=== PATIENT | male | born 1975 | race Caucasian/White ===

== ENCOUNTER 2016-02-09 14:52 | Inpatient (IN) | payer OTHER ==
[2016-02-09 16:39] VITALS: BMI 26.2
--- NOTE | 2016-02-09 17:04 | HP ---
COWS - Scale Resting Pulse: 1= [place] 81-100 Sweatin=Flushed/Facial Moisture Restless Observation: 3= Extraneous Movement Pupil Size: 2= Moderately Dilated Bone or Joint Aches: 2= Severe Diffuse Aches Runny Nose/ Eye Tearin= Runny Nose/Eyes GI Upset > 30mins: 3= Vomiting/Diarrhea Tremor Observation: 2= Slight Tremor Visible Yawning Observation: 2= >3x During Session Anxiety or Irritability: 2=Irritable/Anxious Goose Flesh Skin: 0=Smooth Skin COWS Score: 21 CIWA Score - CIWA Score Nausea/Vomitin Muscle Tremors: 3 Anxiety: 3 Agitation: 3 Paroxysmal Sweats: 2 Orientation: 0-Oriented Tacttile Disturbances: 2-Mild Itch/Numbness/Burn Auditory Disturbances: 2-Mild Harshness/Frighten Visual Disturbances: 2-Mild Sensitivity Headache: 2-Mild CIWA-Ar Total Score: 22 Admission ROS [facility] - HPI Chief Complaint: I NEED HELP TO STOP USING HEROIN,ALCOHOL,COCAINE,CANNABIS DEPENDENCE Allergies/Adverse Reactions: Allergies Allergy/AdvReac Type Severity Reaction Status Date / Time No Known Allergies Allergy Verified 10/09/15 14:51 History of Present Illness: THIS 40 MALE WITH HEROIN,COCAINE,CANNABIS ,ALCOHOL DEPENDENCE,WITHDRAWAL SYMPTOM ,LAST DETOX 6TO 12/26/15 [facility] SYNCOPE ALCOHOL RELATED NICOTINE DEPENDENCE DEPRESSION,INSOMNIA LONGEST PERIOD OF SOBRIETY Exam Limitations: No Limitations - Ebola screening Have you traveled outside of the country in the last 21 days: No (N) Have you had contact with anyone from an Ebola affected area: No Have you been sick,other than usual withdrawal symptoms: No Do you have a fever: No - Review of Systems Constitutional: Chills, Diaphoresis, Loss of Appetite, Malaise, Night Sweats, Changes in sleep, Weakness, Unintentional Wgt. Loss EENT: reports: Tearing, Nose Congestion Respiratory: reports: No Symptoms reported Cardiac: reports: Palpitations GI: reports: Diarrhea, Nausea, Vomiting, Abdominal cramping : reports: No Symptoms Reported Musculoskeletal: reports: Back Pain, Joint Pain, Muscle Pain, Joint Stiffness Neuro: reports: Headache, Tremors Endocrine: reports: No Symptoms Reported Hematology: reports: No Symptoms Reported Psychiatric: reports: Depressed (INSOMNIA) Patient History - Patient Medical History Hx Anemia: No Hx Asthma: Yes (albuterol inhaler) Hx Chronic Obstructive Pulmonary Disease (COPD): No Hx Cancer: No Hx Cardiac Disorders: No Hx Congestive Heart Failure: No Hx Hypertension: No Hx Hypercholesterolemia: No Hx Pacemaker: No HX Cerebrovascular Accident: No Hx Seizures: No Hx Dementia: No Hx Diabetes: No Hx Gastrointestinal Disorders: No Hx Liver Disease: No Hx Genitourinary Disorders: No Hx Sexually Transmitted Disorders: No Hx Renal Disease (ESRD): No Hx Thyroid Disease: No Hx Human Immunodeficiency Virus (HIV): No (negative last 10/23) Hx Hepatitis C: No (negative) Hx Depression: Yes (insomnia) Hx Suicide Attempt: No Hx Bipolar Disorder: No Hx Schizophrenia: No Other Medical History: NO SUICIDAL,NO HOMICIDAL - Patient Surgical History Past Surgical History: No Hx Neurologic Surgery: No Hx Cataract Extraction: No Hx Cardiac Surgery: No Hx Lung Surgery: No Hx Breast Surgery: No Hx Breast Biopsy: No Hx Abdominal Surgery: No Hx Appendectomy: No Hx Cholecystectomy: No Hx Genitourinary Surgery: No Hx Section: No Hx Orthopedic Surgery: No Anesthesia Reaction: No - PPD History Previous Implant?: Yes Date: 12/23/15 Results: 0 mm PPD to be Administered?: No - Smoking Cessation Smoking history: Current every day smoker Have you smoked in the past 12 months: Yes Aproximately how many cigarettes per day: 20 Hx Chewing Tobacco Use: No Initiated information on smoking cessation: Yes 'Breaking Loose' booklet given: 02/09/16 - Substance & Tx. History Substance Use Type: Alcohol, Cocaine, Heroin, Marijuana Hx Substance Use Treatment: Yes ([facility] 12/21/15 TO 12/26/15 [facility]) - Substances Abused Heroin Route: Injection Frequency: Daily Amount used: 20 BAGS Age of first use: 26 Date of Last Use: 02/08/16 Cocaine Route: Injection Frequency: Daily Amount used: 80$ Age of first use: 20 Date of Last Use: 02/08/16 Alcohol Route: Oral Frequency: Daily Amount used: 1PINT OF VODKA/6 PACKS OF 24 OZS OF BEER Age of first use: 16 Date of Last Use: 02/07/16 Marijuana/Hashish Route: Smoking Frequency: Daily Amount used: 50$ Age of first use: 16 Date of Last Use: 02/08/16 Family Disease History - Family Disease History Family Disease History: Diabetes: Grandparent, Father (alcohol,), [place]: Grandparent, Mother (of breast) Admission Physical Exam [facility] - Vital Signs Vital Signs: Vital Signs - 24 hr 02/09/16 16:29 Temperature 96.7 F L Pulse Rate 82 Respiratory 20 Rate Blood Pressure 136/82 - Physical General Appearance: Yes: Moderate Distress, Tremorous, Irritable, Sweating, Anxious HEENTM: Yes: Nasal Congestion Respiratory: Yes: Within Normal Limits Neck: Yes: Within Normal Limits Breast: Yes: Within Normal Limits Cardiology: Yes: Within Normal Limits, Regular Rhythm, Regular Rate, S1, S2 Abdominal: Yes: Normal Bowel Sounds, Non Tender, Flat, Soft, Organomegaly Genitourinary: Yes: Within Normal Limits Back: Yes: Normal Inspection, Muscle Spasm Musculoskeletal: Yes: Back pain, Joint Stiffness, Muscle Pain Extremities: Yes: Tremors Neurological: Yes: awning spreader II-XII NML intact, Fully Oriented, Alert, Motor Strength 5/5 Integumentary: Yes: Dry Lymphatic: Yes: Within Normal Limits - Diagnostic (1) Alcohol dependence with uncomplicated withdrawal Current Visit: No Status: Chronic (2) Asthma Current Visit: No Status: Chronic Qualifiers: Asthma severity: mild intermittent Asthma complication type: uncomplicated Qualified Code(s): J45.20 - Mild intermittent asthma, uncomplicated (3) Cannabis dependence Current Visit: No Status: Chronic (4) Cocaine dependence Current Visit: No Status: Chronic Qualifiers: Substance use status: with intoxication Complication of substance- induced condition: uncomplicated Qualified Code(s): F14.220 - Cocaine dependence with intoxication, uncomplicated (5) Depression Current Visit: No Status: Chronic (6) Insomnia Current Visit: No Status: Chronic Qualifiers: Insomnia type: primary Qualified Code(s): F51.01 - Primary insomnia (7) Nicotine dependence Current Visit: No Status: Chronic Qualifiers: Nicotine product type: cigarettes Substance use status: uncomplicated Qualified Code(s): F17.210 - Nicotine dependence, cigarettes, uncomplicated (8) Opioid dependence with withdrawal Current Visit: No Status: Chronic (9) Weight loss Current Visit: Yes Status: Acute (10) Syncope Current Visit: Yes Status: Acute Cleared for Admission [facility] - Detox or Rehab [facility] Level of Care: Medically Managed Detox Regimen/Protocol: Methadone/Valium S Breath Alcohol Content Breath Alcohol Content: 0 Urine Drug Screen - Results Drug Screen Negative: No Urine Drug Screen Results: THC-Marijuana, GEORGES-Cocaine, OPI-Opiates, BZO- Benzodiazepines
[2016-02-09] MEDS ORDERED: LOPERAMIDE HCL 2 MG CAPSULE PO PRN (17:20)
[2016-02-09] MEDS ORDERED: IBUPROFEN 400 MG TABLET (FP) PO PRN (17:20)
[2016-02-09] MEDS ORDERED: MAGNESIUM CITRATE 300 ML BOTTLE PO PRN (17:20)
[2016-02-09] MEDS ORDERED: MAG HYDROX/AL HYDROX/SIMETH 30 ML UNIT-DOSE CUP PO PRN (17:20)
[2016-02-09] MEDS ORDERED: MENTHOL/PHENOL 1 EACH UD MM PRN (17:20)
[2016-02-09] MEDS ORDERED: P-EPHED 60MG/TRIPROLIDI 2.5MG TABLET PO PRN (17:20)
[2016-02-09] MEDS ORDERED: ACETAMINOPHEN 325 MG TABLET (FP) PO PRN (17:20)
[2016-02-09] MEDS ORDERED: guaiFENesin/D-METHORPHAN HB 10 ML UNIT-DOSE CUPS PO PRN (17:20)
[2016-02-09] MEDS ORDERED: NICOTINE POLACRILEX 2 MG GUM BC PRN (17:20)
[2016-02-09] MEDS ORDERED: diphenhydrAMINE HCL 50 MG CAPSULE PO PRN (17:20)
[2016-02-09] MEDS ORDERED: MAGNESIUM HYDROX 2400MG/30ML ORAL SUSPENSION 30 ML CUP PO PRN (17:20)
[2016-02-09] MEDS ORDERED: ALBUTEROL SO4 6.7 GM HFA INHALER IH PRN (17:24)
[2016-02-09] MEDS ORDERED: diazePAM 5 MG TABLET PO ONE (17:30)
[2016-02-09] MEDS ORDERED: METHADONE HCL 10 MG TABLET (FOR DETOX USE ONLY) PO ONE ×2 (17:30→23:00)
[2016-02-09] MEDS: diazePAM 5 MG TABLET PO SCH (23:00)
[2016-02-09] MEDS: THIAMINE HCL 100 MG TABLET (FP) PO SCH (23:00)
[2016-02-10] MEDS: diazePAM 5 MG TABLET PO PRN ×2 (03:44→10:18)
[2016-02-10] MEDS: diazePAM 5 MG TABLET PO SCH ×3 (05:47→22:11)
[2016-02-10] MEDS ORDERED: METHADONE HCL 10 MG TABLET (FOR DETOX USE ONLY) PO SCH (10:00)
--- NOTE | 2016-02-10 10:10 | CONSULT ---
[facility] Psychiatric Consult - Data Date of interview: 02/10/16 Admission source: [facility] Identifying data: This is one of multiple admissions to [facility] for this 40 y/ o male seeking detox treatment on for alcohol,marijuana, cocaine and heroin dependence.Patient is single without children,homeless, unemployed and dependent on food stamps. Substance Abuse History: - Smoking Cessation. Smoking history: Current every day smoker. Have you smoked in the past 12 months: Yes. Aproximately how many cigarettes per day: 20. Hx Chewing Tobacco Use: No. Initiated information on smoking cessation: Yes. 'Breaking Loose' booklet given: 02/09/16. - Substance & Tx. History. Substance Use Type: Alcohol, Cocaine, Heroin, Marijuana. Hx Substance Use Treatment: Yes ([facility] 12/21/15 TO 12/26/15 [facility]). - Substances Abused. Heroin. Route: Injection. Frequency: Daily. Amount used: 20 BAGS. Age of first use: 26. Date of Last Use: 02/08/16. Cocaine. Route: Injection. Frequency: Daily. Amount used: 80$. Age of first use: 20. Date of Last Use: 02/08/16. Alcohol. Route: Oral. Frequency: Daily. Amount used: 1PINT OF VODKA/6 PACKS OF 24 OZS OF BEER. Age of first use: 16. Date of Last Use: 02/07/16. Marijuana/Hashish. Route: Smoking. Frequency: Daily. Amount used: 50$. Age of first use: 16. Date of Last Use: 02/08/16. Confirmed by patient. Medical History: Significant for bronchial asthma and migraine headaches. Psychiatric History: Patient denies. Physical/Sexual Abuse/Trauma History: No reported history of sexual abuse. Additional Comment: Urine Drug Screen Results: THC-Marijuana, GEORGES-Cocaine, OPI- Opiates, BZO-Benzodiazepines.Noted. Mental Status Exam - Mental Status Exam Alert and Oriented to: Time, Place, Person Cognitive Function: Good Patient Appearance: Well Groomed Mood: Anxious, Apprehensive, Hopeful Affect: Appropriate, Normal Range Patient Behavior: Fatigued, Appropriate, Cooperative Speech Pattern: Clear, Appropriate Voice Loudness: Normal Thought Process: Goal Oriented Thought Disorder: Not Present Hallucinations: Denies Suicidal Ideation: Denies Homicidal Ideation: Denies Insight/Judgement: Poor Sleep: Poorly, Difficulty falling asleep Appetite: Good Muscle strength/Tone: Normal Gait/Station: Normal Psychiatric Findings - Problem List ([place] 1, 2,3) (1) Alcohol dependence with uncomplicated withdrawal Current Visit: Yes Status: Acute (2) Cannabis dependence Current Visit: Yes Status: Chronic (3) Drug-induced mood disorder Current Visit: Yes Status: Acute (4) Cocaine dependence Current Visit: Yes Status: Acute Qualifiers: Substance use status: with intoxication Complication of substance- induced condition: uncomplicated Qualified Code(s): F14.220 - Cocaine dependence with intoxication, uncomplicated (5) Nicotine dependence Current Visit: Yes Status: Acute Qualifiers: Nicotine product type: cigarettes Substance use status: uncomplicated Qualified Code(s): F17.210 - Nicotine dependence, cigarettes, uncomplicated (6) Opioid dependence with withdrawal Current Visit: Yes Status: Acute (7) Asthma Current Visit: Yes Status: Chronic Qualifiers: Asthma severity: mild intermittent Asthma complication type: uncomplicated Qualified Code(s): J45.20 - Mild intermittent asthma, uncomplicated (8) Insomnia Current Visit: Yes Status: Chronic Qualifiers: Insomnia type: primary Qualified Code(s): F51.01 - Primary insomnia - Initial Treatment Plan Initial Treatment Plan: Psychoeducation.Detoxification.Zolpidem 10 mg po hs prn.Patient is made aware of the risk of parasomnias.He agrees with careplan.Observation.
[2016-02-10] MEDS: PRENATAL VITAMINS W/ FOLIC ACID TABLET (FP) PO SCH (10:15)
--- NOTE | 2016-02-10 10:37 | PN ---
[facility] CIWA - CIWA Score Nausea/Vomitin Muscle Tremors: 3 Anxiety: 3 Agitation: 3 Paroxysmal Sweats: 3 Orientation: 0-Oriented Tacttile Disturbances: 2-Mild Itch/Numbness/Burn Auditory Disturbances: 0-None Visual Disturbances: 0-None Headache: 0-None Present CIWA-Ar Total Score: 17 S COWS - Scale Resting Pulse: 0= [place] 80 or Below Sweatin=Flushed/Facial Moisture Restless Observation: 1= Difficult to Sit Still Pupil Size: 1= Pupils >than Normal Bone or Joint Aches: 2= Severe Diffuse Aches Runny Nose/ Eye Tearin= Nasal Congestion GI Upset > 30mins: 1= Stomach Cramp Tremor Observation of Outstretched Hands: 1= Tremor [place], Not Seen Yawning Observation: 0= None Anxiety or Irritability: 2=Irritable/Anxious Goose Flesh Skin: 0=Smooth Skin COWS Score: 11 [facility] Progress Note (SOAP) Subjective: INTERRUPTED SLEEP, SWEATS, NAUSEA, VOMITING , KNEES AND ELBOWS HURT Objective: 02/10/16 10:36 Vital Signs Temperature 97.2 F L 02/10/16 10:27 Pulse Rate 73 02/10/16 10:27 Respiratory Rate 18 02/10/16 10:27 Blood Pressure 120/71 02/10/16 10:27 O2 Sat by Pulse Oximetry (%) PENDING LABS PT AOX3 LYING IN BED Assessment: 02/10/16 10:36 WITHDRAWL SX;S Plan: CONT. DETOX INCREASE FLUIDS MOTRIN PRN FLEXERIL 10MG TID/PRN
[2016-02-10 11:03] LABS: MCH 30.9 pg (25.7-33.7); MCHC 32.9 g/dl (32.0-35.9); MEAN CELL VOLUME 93.9 fl (80-96); MEAN PLT VOLUME 8.3 fl (7.5-11.1); PLATELET COUNT 290 K/MM3 (134-434); RDW 14.1 % (11.9-15.9); WHITE BLOOD COUNT 8.8 K/mm3 (4.0-10.0)
[2016-02-10 11:32] LABS: ALBUMIN 3.4 g/dl (3.4-5.0); ALK PHOS 104 U/L (45-117); ANION GAP 2 (8-16); BILIRUBIN,TOTAL 0.5 mg/dL (0.2-1.0); CO2 31 mmol/L (21-32); CREATININE 0.9 mg/dL (0.7-1.3); GLUCOSE,RANDOM 77 mg/dL (74-106); SGOT/AST 101 U/L (15-37); SGPT/ALT 171 U/L (12-78); TOT PROT 7.1 g/dl (6.4-8.2)
[2016-02-10 11:44] LABS: HIV 1 & 2 AB NEGATIVE; HIV 1 AGp24 NEGATIVE
[2016-02-10 14:24] LABS: URINE APPEARANCE CLEAR; URINE BILIRUBIN NEGATIVE (NEGATIVE); URINE BLOOD NEGATIVE (NEGATIVE); URINE COLOR YELLOW; URINE GLUCOSE (UA) NEGATIVE (NEGATIVE); URINE KETONE NEGATIVE (NEGATIVE); URINE LEUK ESTERASE NEGATIVE (NEGATIVE); URINE NITRITE NEGATIVE (NEGATIVE); URINE PROTEIN NEGATIVE (NEGATIVE); URINE UROBILINOGEN NEGATIVE E.U./dl (0.2-1.0)
[2016-02-10] MEDS: THIAMINE HCL 100 MG TABLET (FP) PO SCH (22:11)
[2016-02-10] MEDS: ZOLPIDEM TARTRATE 10 MG TABLET (PARK CARE ONLY) PO PRN (22:11)
[2016-02-11] MEDS: diazePAM 5 MG TABLET PO PRN ×2 (02:30→20:32)
[2016-02-11] MEDS: diazePAM 5 MG TABLET PO SCH ×2 (10:27→22:25)
[2016-02-11] MEDS: PRENATAL VITAMINS W/ FOLIC ACID TABLET (FP) PO SCH (10:27)
[2016-02-11] MEDS: METHADONE HCL 5 MG TABLET (FOR DETOX USE ONLY) PO SCH (10:27)
[2016-02-11] MEDS: hydrOXYzine PAMOATE 50 MG CAPSULE (FP) PO PRN (10:27)
--- NOTE | 2016-02-11 10:39 | PN ---
[facility] CIWA - CIWA Score Nausea/Vomitin-No Nausea/No Vomiting Muscle Tremors: 4-Moderate,w/Arms Extend Anxiety: 4-Mod. Anxious/Guarded Agitation: 4-Moderately Restless Paroxysmal Sweats: 3 Orientation: 0-Oriented Tacttile Disturbances: 0-None Auditory Disturbances: 0-None Visual Disturbances: 0-None Headache: 0-None Present CIWA-Ar Total Score: 15 S COWS - Scale Resting Pulse: 0= [place] 80 or Below Sweatin=Flushed/Facial Moisture Restless Observation: 1= Difficult to Sit Still Pupil Size: 0= Normal to Room Light Bone or Joint Aches: 2= Severe Diffuse Aches Runny Nose/ Eye Tearin= Nasal Congestion GI Upset > 30mins: 0= None Tremor Observation of Outstretched Hands: 2= Slight Tremor Visible Yawning Observation: 0= None Anxiety or Irritability: 2=Irritable/Anxious Goose Flesh Skin: 0=Smooth Skin COWS Score: 10 S Progress Note (SOAP) Subjective: shakes sweats body aches irritable agitation interrupted sleep Objective: 02/11/16 10:38 Vital Signs Temperature 98.1 F 02/11/16 06:27 Pulse Rate 67 02/11/16 06:27 Respiratory Rate 16 02/11/16 06:27 Blood Pressure 123/85 02/11/16 06:27 O2 Sat by Pulse Oximetry (%) Laboratory Tests 02/10/16 02/10/16 02/10/16 06:30 06:30 06:30 WBC 8.8 D RBC 4.67 Hgb 14.4 D Hct 43.9 D MCV 93.9 MCHC 32.9 RDW 14.1 Plt Count 290 MPV 8.3 Sodium 142 Potassium 4.9 Chloride 109 H Carbon Dioxide 31 Anion Gap 2 L BUN 13 Creatinine 0.9 Creat Clearance w eGFR > 60 Random Glucose 77 Calcium 9.0 Total Bilirubin 0.5 AST 101 H D ALT 171 H D Alkaline Phosphatase 104 D Total Protein 7.1 Albumin 3.4 D Urine Color Urine Appearance Urine pH Ur Specific [place] Urine Protein Urine Glucose (UA) Urine Ketones Urine Blood Urine Nitrite Urine Bilirubin Urine Urobilinogen Ur Leukocyte Esterase RPR Titer Nonreactive HIV 1&2 Antibody Screen HIV P24 Antigen 02/10/16 02/10/16 06:30 09:30 WBC RBC Hgb Hct MCV MCHC RDW Plt Count MPV Sodium Potassium Chloride Carbon Dioxide Anion Gap BUN Creatinine Creat Clearance w eGFR Random Glucose Calcium Total Bilirubin AST ALT Alkaline Phosphatase Total Protein Albumin Urine Color Yellow Urine Appearance Clear Urine pH 5.0 D Ur Specific [place] 1.025 Urine Protein Negative Urine Glucose (UA) Negative Urine Ketones Negative Urine Blood Negative Urine Nitrite Negative Urine Bilirubin Negative Urine Urobilinogen Negative Ur Leukocyte Esterase Negative RPR Titer HIV 1&2 Antibody Screen Negative HIV P24 Antigen Negative elevated ast/alt; d/c tylenol awake/alert ambulating no acute distress Assessment: 02/11/16 10:39 withdrawal sx Plan: continue detox increase fluids flexiril prn motrin 800mg prn
[2016-02-11] MEDS: CYCLOBENZAPRINE HCL 10 MG TABLET (FP) PO PRN (11:10)
[2016-02-11] MEDS: IBUPROFEN 400 MG TABLET (FP) PO PRN (11:10)
[2016-02-11] MEDS: THIAMINE HCL 100 MG TABLET (FP) PO SCH (22:25)
[2016-02-11] MEDS: ZOLPIDEM TARTRATE 10 MG TABLET (PARK CARE ONLY) PO PRN (22:25)
[2016-02-12] MEDS: diazePAM 5 MG TABLET PO PRN ×3 (02:33→14:39)
[2016-02-12] MEDS: PRENATAL VITAMINS W/ FOLIC ACID TABLET (FP) PO SCH (10:12)
[2016-02-12] MEDS: IBUPROFEN 400 MG TABLET (FP) PO PRN (10:12)
[2016-02-12] MEDS: CYCLOBENZAPRINE HCL 10 MG TABLET (FP) PO PRN ×2 (10:12→22:15)
[2016-02-12] MEDS: diazePAM 5 MG TABLET PO SCH ×2 (10:13→22:15)
[2016-02-12] MEDS: METHADONE HCL 5 MG TABLET (FOR DETOX USE ONLY) PO SCH (10:13)
--- NOTE | 2016-02-12 10:58 | PN ---
[facility] Progress Note (SOAP) Subjective: interrupted sleep, sweats nausea, lbp, joint pains Objective: 02/12/16 10:57 Vital Signs Temperature 95.5 F L 02/12/16 09:56 Pulse Rate 89 02/12/16 09:56 Respiratory Rate 18 02/12/16 09:56 Blood Pressure 124/69 02/12/16 09:56 O2 Sat by Pulse Oximetry (%) Laboratory Tests 02/10/16 02/10/16 02/10/16 06:30 06:30 06:30 WBC 8.8 D RBC 4.67 Hgb 14.4 D Hct 43.9 D MCV 93.9 MCHC 32.9 RDW 14.1 Plt Count 290 MPV 8.3 Sodium 142 Potassium 4.9 Chloride 109 H Carbon Dioxide 31 Anion Gap 2 L BUN 13 Creatinine 0.9 Creat Clearance w eGFR > 60 Random Glucose 77 Calcium 9.0 Total Bilirubin 0.5 AST 101 H D ALT 171 H D Alkaline Phosphatase 104 D Total Protein 7.1 Albumin 3.4 D Urine Color Urine Appearance Urine pH Ur Specific [place] Urine Protein Urine Glucose (UA) Urine Ketones Urine Blood Urine Nitrite Urine Bilirubin Urine Urobilinogen Ur Leukocyte Esterase RPR Titer Nonreactive HIV 1&2 Antibody Screen HIV P24 Antigen 02/10/16 02/10/16 06:30 09:30 WBC RBC Hgb Hct MCV MCHC RDW Plt Count MPV Sodium Potassium Chloride Carbon Dioxide Anion Gap BUN Creatinine Creat Clearance w eGFR Random Glucose Calcium Total Bilirubin AST ALT Alkaline Phosphatase Total Protein Albumin Urine Color Yellow Urine Appearance Clear Urine pH 5.0 D Ur Specific [place] 1.025 Urine Protein Negative Urine Glucose (UA) Negative Urine Ketones Negative Urine Blood Negative Urine Nitrite Negative Urine Bilirubin Negative Urine Urobilinogen Negative Ur Leukocyte Esterase Negative RPR Titer HIV 1&2 Antibody Screen Negative HIV P24 Antigen Negative pt aox3 in nad lying in bed Assessment: 02/12/16 10:57 withdrawl sx's Plan: cont. detox increase fluids analgesic balm bid
[2016-02-12] MEDS: THIAMINE HCL 100 MG TABLET (FP) PO SCH (22:15)
[2016-02-12] MEDS: ZOLPIDEM TARTRATE 10 MG TABLET (PARK CARE ONLY) PO PRN (22:16)
[2016-02-12] MEDS: METHYL SALICYLATE/MENTHOL OINT 30 GM TUBE TP SCH (22:17)
[2016-02-13] MEDS ORDERED: METHADONE HCL 10 MG TABLET (FOR DETOX USE ONLY) PO SCH (10:00)
[2016-02-13] MEDS ORDERED: diazePAM 5 MG TABLET PO SCH (10:00)
[2016-02-13] MEDS: IBUPROFEN 400 MG TABLET (FP) PO PRN (10:17)
[2016-02-13] MEDS: PRENATAL VITAMINS W/ FOLIC ACID TABLET (FP) PO SCH (10:17)
[2016-02-13] MEDS: hydrOXYzine PAMOATE 50 MG CAPSULE (FP) PO PRN ×2 (10:18→14:11)
[2016-02-13] MEDS: CYCLOBENZAPRINE HCL 10 MG TABLET (FP) PO PRN ×2 (10:18→22:14)
[2016-02-13] MEDS: METHYL SALICYLATE/MENTHOL OINT 30 GM TUBE TP SCH ×2 (10:18→22:13)
--- NOTE | 2016-02-13 10:45 | PN ---
[facility] Progress Note (SOAP) Subjective: sweats Objective: 02/13/16 10:40 Vital Signs Temperature 97.9 F 02/13/16 10:04 Pulse Rate 88 02/13/16 10:04 Respiratory Rate 18 02/13/16 10:04 Blood Pressure 106/70 02/13/16 10:04 O2 Sat by Pulse Oximetry (%) awake/alert ambulating no acute distress Assessment: 02/13/16 10:41 withdrawal sx Plan: continue detox increase fluids d/c in am
[2016-02-13] MEDS: THIAMINE HCL 100 MG TABLET (FP) PO SCH (22:13)
[2016-02-14] MEDS ORDERED: METHADONE HCL 5 MG TABLET (FOR DETOX USE ONLY) PO SCH (06:00)
--- NOTE | 2016-02-14 07:45 | PN ---
S Progress Note (SOAP) Subjective: ALERT,NO COMPLAINT Objective: 02/14/16 07:44 Vital Signs Temperature 97.2 F L 02/14/16 06:42 Pulse Rate 64 02/14/16 06:42 Respiratory Rate 16 02/14/16 06:42 Blood Pressure 100/63 02/14/16 06:42 O2 Sat by Pulse Oximetry (%) Assessment: 02/14/16 07:44 DETOX COMPLETED,NO WITHDRAWAL SYMPTOM Plan: DISCHARGE TODAY,FOLLOW UP WITH AFTER CARE PROGRAM ARRANGEMENT
--- NOTE | 2016-02-14 07:49 | DS ---
[facility] Detox Discharge Summary Admission Date: 02/09/16 Discharge Date: 02/14/16 - History Present History: Alcohol Dependence, Cannabis Dependence, Opioid Dependence, Sedative Dependence Additional Comments: FOLLOW UP WITH AFTER CARE PROGRAM ARRANGEMENT Pertinent Past History: ASTHMA - Physical Exam Results Vital Signs: Vital Signs Temperature 97.2 F L 02/14/16 06:42 Pulse Rate 64 02/14/16 06:42 Respiratory Rate 16 02/14/16 06:42 Blood Pressure 100/63 02/14/16 06:42 O2 Sat by Pulse Oximetry (%) Pertinent Admission Physical Exam Findings: WITHDRAWAL SYMPTOM - Treatment Hospital Course: Detox Protocol Followed, Detoxed Safely, Responded well, Discharged Condition Good Patient has Accepted a Rehab Referral to: [facility] - Medication Discharge Medications: Ambulatory Orders Albuterol Sulfate Inhaler - [Ventolin HFA Inhaler -] 2 inh IH Q4H PRN 12/16/14 Zolpidem Tartrate [Ambien] 10 mg PO HS #14 tablet 03/13/15 - Diagnosis (1) Alcohol dependence with uncomplicated withdrawal Current Visit: Yes Status: Acute (2) Asthma Current Visit: Yes Status: Chronic Qualifiers: Asthma severity: mild intermittent Asthma complication type: uncomplicated Qualified Code(s): J45.20 - Mild intermittent asthma, uncomplicated (3) Cannabis dependence Current Visit: Yes Status: Chronic (4) Cocaine dependence Current Visit: Yes Status: Acute Qualifiers: Substance use status: with intoxication Complication of substance- induced condition: uncomplicated Qualified Code(s): F14.220 - Cocaine dependence with intoxication, uncomplicated (5) Depression Current Visit: No Status: Chronic (6) Insomnia Current Visit: Yes Status: Chronic Qualifiers: Insomnia type: primary Qualified Code(s): F51.01 - Primary insomnia (7) Nicotine dependence Current Visit: Yes Status: Acute Qualifiers: Nicotine product type: cigarettes Substance use status: uncomplicated Qualified Code(s): F17.210 - Nicotine dependence, cigarettes, uncomplicated (8) Opioid dependence with withdrawal Current Visit: Yes Status: Acute (9) Weight loss Current Visit: Yes Status: Acute (10) Syncope Current Visit: Yes Status: Acute - AMA Did Patient Leave Against Medical Advice: No
[2016-02-14 09:29] VITALS: BP 122/70; PULSE 80; TEMP 95.6
== END 2016-02-14 09:52 | disposition home or self-care (01) | DRG 773 ==
LOC: YASAS 14:52 → Y6N 17:18
PROVIDERS: ADMIT Internal Medicine; ATTEND Internal Medicine
PROC: HZ2ZZZZ Detoxification Services for Substance Abuse Treatment (ICD-10-PCS; principal; 2016-02-09)
DX: F11.23 Opioid dependence with withdrawal (principal); F10.230 Alcohol dependence with withdrawal, uncomplicated; F14.20 Cocaine dependence, uncomplicated; F12.20 Cannabis dependence, uncomplicated; F17.210 Nicotine dependence, cigarettes, uncomplicated; F19.24 Other psychoactive substance dependence with psychoactive substance-induced mood disorder; F32.9 Major depressive disorder, single episode, unspecified; F51.01 Primary insomnia; J45.20 Mild intermittent asthma, uncomplicated; R74.0 Nonspecific elevation of levels of transaminase and lactic acid dehydrogenase [LDH]; Z87.898 Personal history of other specified conditions; Z86.79 Personal history of other diseases of the circulatory system
CPT/HCPCS: 36415; 80053; 81003; 85027; 86593; 87389; 93005; 93010

== ENCOUNTER 2017-06-16 12:13 | Inpatient (IN) | payer OTHER ==
[2017-06-16 14:12] VITALS: BMI 23.8
--- NOTE | 2017-06-16 14:17 | HP ---
COWS - Scale Resting Pulse: 0= [place] 80 or Below Sweatin= Chills/Flushing Restless Observation: 1= Difficult to Sit Still Pupil Size: 0= Normal to Room Light Bone or Joint Aches: 2= Severe Diffuse Aches Runny Nose/ Eye Tearin= Runny Nose/Eyes GI Upset > 30mins: 1= Stomach Cramp Tremor Observation: 2= Slight Tremor Visible Yawning Observation: 1= 1-2x During Session Anxiety or Irritability: 2=Irritable/Anxious Goose Flesh Skin: 3=Piloerection COWS Score: 15 CIWA Score - CIWA Score Nausea/Vomitin Muscle Tremors: 3 Anxiety: 4-Mod. Anxious/Guarded Agitation: 2 Paroxysmal Sweats: 3 Orientation: 0-Oriented Tacttile Disturbances: 3-Moderate Itch/Numb/Burn Auditory Disturbances: 0-None Visual Disturbances: 2-Mild Sensitivity Headache: 0-None Present CIWA-Ar Total Score: 20 Admission ROS BHS - HPI Chief Complaint: "I came here because I want to get help and because I want to get my life back in order." Patient is here to Detox from Alcohol and Heroin. Allergies/Adverse Reactions: Allergies Allergy/AdvReac Type Severity Reaction Status Date / Time No Known Allergies Allergy Verified 06/16/17 13:52 History of Present Illness: Patient is a 42 YO male here to Detox from Alcohol and Heroin. Patient has had several previous Detox admissions at [facility] (Last: 02/2016). Longest period of sobriety / non-drug use in recent years: aprox. 5 years 1991 - 1996. Exam Limitations: No Limitations - Ebola screening Have you traveled outside of the country in the last 21 days: No Have you had contact with anyone from an Ebola affected area: No Have you been sick,other than usual withdrawal symptoms: No Do you have a fever: No - Review of Systems Constitutional: Diaphoresis, Fever, Loss of Appetite, Malaise, Night Sweats, Changes in sleep, Unintentional Wgt. Loss (Lost approx. 100 lbs. over last 3 months.) EENT: reports: Nose Congestion Respiratory: reports: Productive cough Cardiac: reports: No Symptoms Reported GI: reports: Constipated, Nausea, Poor Appetite, Vomiting, Indigestion, Abdominal cramping : reports: No Symptoms Reported Musculoskeletal: reports: Joint Pain Integumentary: reports: No Symptoms Reported Neuro: reports: Headache Endocrine: reports: No Symptoms Reported Hematology: reports: No Symptoms Reported Psychiatric: reports: Judgement Intact, Mood/Affect Appropiate, Orientated x3, Anxious, Depressed Patient History - Patient Medical History Hx Anemia: No Hx Asthma: Yes (Uses MDI PRN.) Hx Chronic Obstructive Pulmonary Disease (COPD): No Hx Cancer: No Hx Cardiac Disorders: No Hx Congestive Heart Failure: No Hx Hypertension: No Hx Hypercholesterolemia: No Hx Pacemaker: No HX Cerebrovascular Accident: No Hx Seizures: No Hx Dementia: No Hx Diabetes: No Hx Gastrointestinal Disorders: No Hx Liver Disease: No Hx Genitourinary Disorders: No Hx Sexually Transmitted Disorders: No Hx Renal Disease (ESRD): No Hx Thyroid Disease: No (Last Tested: 2016: NEGATIVE.) Hx Human Immunodeficiency Virus (HIV): No Hx Hepatitis C: No (Last Tested: 2016: NEGATIVE.) Hx Depression: Yes (Meds. in past, None currently.) Hx Suicide Attempt: No (PATIENT DENIES CURRENT SI / HI.) Hx Bipolar Disorder: No Hx Schizophrenia: No Other Medical History: DENIES. - Patient Surgical History Past Surgical History: No Hx Neurologic Surgery: No Hx Cataract Extraction: No Hx Cardiac Surgery: No Hx Lung Surgery: No Hx Breast Surgery: No Hx Breast Biopsy: No Hx Abdominal Surgery: No Hx Appendectomy: No Hx Cholecystectomy: No Hx Genitourinary Surgery: No Hx Section: No Hx Orthopedic Surgery: No Other Surgical History: DENIES. Anesthesia Reaction: No - PPD History Previous Implant?: Yes Documented Results: Negative w/proof Implanted On Prior [facility] Admission?: Yes Date: 12/23/15 Results: 0 mm PPD to be Administered?: Yes - Reproductive History Patient is a Female of Child Bearing Age (11 -55 yrs old): No (PATIENT IS MALE.) - Smoking Cessation Smoking history: Current every day smoker Have you smoked in the past 12 months: Yes Aproximately how many cigarettes per day: 20 Cigars Per Day: 0 Hx Chewing Tobacco Use: No Initiated information on smoking cessation: Yes 'Breaking Loose' booklet given: 06/16/17 (GIVEN TO PATIENT.) - Substance & Tx. History Hx Substance Use: Yes Substance Use Type: Alcohol, Cocaine, Marijuana, Opiates Hx Substance Use Treatment: Yes (Previous Detox admissions at [facility], also at [facility] ([place], [place] 2017.) - Substances Abused Heroin Route: Injection Frequency: Daily Amount used: 20 bags Age of first use: 26 Date of Last Use: 06/15/17 Cocaine Route: Injection Frequency: Daily Amount used: $100 Age of first use: 17 Date of Last Use: 06/15/17 Alcohol-vodka/rum/beer Route: Oral Frequency: Daily Amount used: 2-3 pts./2-3 6 pts. Age of first use: 14 Date of Last Use: 06/15/17 Marijuana Route: Smoking Frequency: Daily Amount used: $50 Age of first use: 14 Date of Last Use: 06/15/17 Family Disease History - Family Disease History Family Disease History: Diabetes: Grandparent (Migraines.), Father (alcohol, ; Liver Cirrhosis.), [place]: Grandparent, Mother (of breast), Other: Grandparent, Father Admission Physical Exam S - Vital Signs Vital Signs: Vital Signs - 24 hr 06/16/17 13:54 Temperature 97 F L Pulse Rate 59 L - Physical General Appearance: Yes: No Apparent Distress, Nourished, Appropriately Dressed , Anxious HEENTM: Yes: Hearing grossly Normal, Normocephalic, Normal Voice, PRETTY, Pharynx Normal Respiratory: Yes: Chest Non-Tender, Lungs Clear, No Respiratory Distress, No Accessory Muscle Use Neck: Yes: No masses,lesions,Nodules, Supple, Trachea in good position Breast: Yes: Breast Exam Deferred Cardiology: Yes: Regular Rhythm, Regular Rate, S1, S2 Abdominal: Yes: Normal Bowel Sounds, Non Tender, Flat, Soft Genitourinary: Yes: Within Normal Limits Back: Yes: Normal Inspection Musculoskeletal: Yes: full range of Motion, Gait Steady Extremities: Yes: Normal Capillary Refill, Normal Range of Motion, Non-Tender Neurological: Yes: Fully Oriented, Alert, Normal Mood/Affect, Normal Response Integumentary: Yes: Normal Color, Dry, Warm, Track Stout (Noted on bilateral forearms. No signs of infection noted at affected sites.) Lymphatic: Yes: Within Normal Limits - Diagnostic (1) Alcohol dependence with uncomplicated withdrawal Current Visit: Yes Status: Acute (2) Cocaine dependence, uncomplicated Current Visit: Yes Status: Acute (3) Cannabis dependence, uncomplicated Current Visit: Yes Status: Acute (4) Nicotine dependence Current Visit: Yes Status: Chronic Qualifiers: Nicotine product type: cigarettes Substance use status: uncomplicated Qualified Code(s): F17.210 - Nicotine dependence, cigarettes, uncomplicated (5) Opioid dependence with withdrawal Current Visit: Yes Status: Acute (6) Asthma Current Visit: Yes Status: Chronic Qualifiers: Asthma severity: mild Asthma persistence: intermittent Asthma complication type: uncomplicated Qualified Code(s): J45.20 - Mild intermittent asthma, uncomplicated Cleared for Admission [facility] - Detox or Rehab [facility] Level of Care: Medically Managed Detox Regimen/Protocol: Methadone/Valium (Patient Requests.) [facility] Breath Alcohol Content Breath Alcohol Content: 0 Urine Drug Screen - Results Drug Screen Negative: No Urine Drug Screen Results: THC-Marijuana, [place]ES-Cocaine, OPI-Opiates
[2017-06-16] MEDS ORDERED: guaiFENesin/D-METHORPHAN HB 10 ML UNIT-DOSE CUPS PO PRN (14:35)
[2017-06-16] MEDS ORDERED: LOPERAMIDE HCL 2 MG CAPSULE PO PRN (14:35)
[2017-06-16] MEDS ORDERED: P-EPHED 60MG/TRIPROLIDI 2.5MG TABLET PO PRN (14:35)
[2017-06-16] MEDS ORDERED: MAGNESIUM CITRATE 300 ML BOTTLE PO PRN (14:35)
[2017-06-16] MEDS ORDERED: chlordiazePOXIDE HCL 25 MG CAPSULE PO PRN (14:35)
[2017-06-16] MEDS ORDERED: MENTHOL/PHENOL 1 EACH UD MM PRN (14:35)
[2017-06-16] MEDS ORDERED: IBUPROFEN 400 MG TABLET (FP) PO PRN (14:35)
[2017-06-16] MEDS ORDERED: chlordiazePOXIDE HCL 25 MG CAPSULE PO ONE (14:35)
[2017-06-16] MEDS ORDERED: MAGNESIUM HYDROX 2400MG/30ML ORAL SUSPENSION 30 ML CUP PO PRN (14:35)
[2017-06-16] MEDS ORDERED: MAG HYDROX/AL HYDROX/SIMETH 30 ML UNIT-DOSE CUP PO PRN (14:35)
[2017-06-16] MEDS ORDERED: NICOTINE POLACRILEX 2 MG GUM BUC PRN (14:35)
[2017-06-16] MEDS ORDERED: ACETAMINOPHEN 325 MG TABLET (FP) PO PRN (15:28)
[2017-06-16] MEDS ORDERED: METHADONE HCL 10 MG TABLET (FOR DETOX USE ONLY) PO ONE ×3 (15:30→23:00)
[2017-06-16] MEDS ORDERED: diazePAM 5 MG TABLET PO ONE ×2 (15:45→18:30)
[2017-06-16] MEDS ORDERED: chlordiazePOXIDE HCL 25 MG CAPSULE PO SCH (17:00)
[2017-06-16 17:12] LABS: ALBUMIN 3.7 g/dl (3.4-5.0); ANION GAP 10 (8-16); BLOOD UREA NITROGEN 11 mg/dL (7-18); CALCIUM 8.9 mg/dL (8.5-10.1); CHLORIDE 105 mmol/L (98-107); CO2 29 mmol/L (21-32); GLUCOSE,RANDOM 81 mg/dL (74-106); POTASSIUM 4.3 mmol/L (3.5-5.1); SODIUM 144 mmol/L (136-145)
[2017-06-16 17:14] LABS: ALK PHOS 103 U/L (45-117); BILIRUBIN,TOTAL 0.4 mg/dL (0.2-1.0); CREATININE 0.9 mg/dL (0.7-1.3); SGOT/AST 40 U/L (15-37); SGPT/ALT 47 U/L (12-78); TOT PROT 7.3 g/dl (6.4-8.2)
[2017-06-16] MEDS: NICOTINE 21 MG/24 HOURS TOPICAL PATCH TD SCH (18:31)
[2017-06-16] MEDS: diazePAM 5 MG TABLET PO SCH (22:48)
[2017-06-16] MEDS: THIAMINE HCL 100 MG TABLET (FP) PO SCH (22:48)
[2017-06-16] MEDS: MELATONIN 5 MG TABLETS PO PRN (22:48)
[2017-06-16 23:15] LABS: URINE APPEARANCE TURBID; URINE BILIRUBIN NEGATIVE (<2.0 mg/dL); URINE COLOR YELLOW; URINE GLUCOSE (UA) NEGATIVE (NEGATIVE); URINE KETONE NEGATIVE (NEGATIVE); URINE LEUK ESTERASE NEGATIVE (NEGATIVE); URINE NITRITE NEGATIVE (NEGATIVE); URINE PROTEIN NEGATIVE (NEGATIVE); URINE UROBILINOGEN 4.0 E.U/dl mg/dL (0.2-1.0)
[2017-06-17] MEDS: diazePAM 5 MG TABLET PO SCH ×3 (05:35→22:18)
[2017-06-17 08:32] LABS: HEMATOCRIT 36.6 % (35.4-49); HEMOGLOBIN 12.5 GM/dL (11.7-16.9); MCH 31.3 pg (25.7-33.7); MCHC 34.1 g/dl (32.0-35.9); MEAN PLT VOLUME 8.8 fl (7.5-11.1); PLATELET COUNT 253 K/MM3 (134-434); RBC 3.98 M/mm3 (4.00-5.60); RDW 13.9 % (11.9-15.9); WHITE BLOOD COUNT 7.4 K/mm3 (4.0-10.0)
--- NOTE | 2017-06-17 09:49 | EKG ---
Test Reason : Blood Pressure : / mmHG Vent. Rate : 062 BPM Atrial Rate : 062 BPM P-R Int : 142 ms QRS Dur : 092 ms QT Int : 424 ms P-R-T Axes : 043 085 055 degrees QTc Int : 430 ms NORMAL SINUS RHYTHM NON-SPECIFIC INTRA-VENTRICULAR CONDUCTION DELAY NO PREVIOUS ECGS AVAILABLE Confirmed by RADHA PEREA MD ([id number]) on 06/17/2017 9:48:51 AM Referred By: Confirmed By:RADHA PEREA MD
--- NOTE | 2017-06-17 09:50 | CONSULT ---
[facility] Psychiatric Consult - Data Date of interview: 06/17/17 Admission source: [facility] Identifying data: Patient is a 42 year old single male, without kids, unemployed , homeless, and supported by public assistance. This is one of multiple admissions for patient. Pt. admitted to for alcohol, cocaine, and opiate dependence. Substance Abuse History: Following information confirmed with Mr. Diaz: Smoking Cessation. Smoking history: Current every day smoker. Have you smoked in the past 12 months: Yes. Aproximately how many cigarettes per day: 20. Cigars Per Day: 0. Hx Chewing Tobacco Use: No. Initiated information on smoking cessation: Yes. 'Breaking Loose' booklet given: 06/16/17 (GIVEN TO PATIENT.). - Substance & Tx. History. Hx Substance Use: Yes. Substance Use Type: Alcohol, Cocaine, Marijuana, Opiates. Hx Substance Use Treatment: Yes ( Previous Detox admissions at [facility], also at [facility] ([place], [place] 2017.). - Substances Abused. Heroin. Route: Injection. Frequency: Daily. Amount used: 20 bags. Age of first use: 26. Date of Last Use: 06/15/17. Cocaine. Route: Injection. Frequency: Daily. Amount used: $100. Age of first use: 17. Date of Last Use: 06/15/17. Alcohol-vodka/rum/beer. Route: Oral. Frequency: Daily. Amount used: 2-3 pts./2-3 6 pts. Age of first use: 14. Date of Last Use: 06/15/17. Marijuana. Route: Smoking. Frequency: Daily. Amount used: $50. Age of first use: 14. Date of Last Use: 06/15/17 Medical History: Asthma Psychiatric History: Patient denies h/o psychiatric hospitalization, outpatient care, and suicide attempt. Physical/Sexual Abuse/Trauma History: Denies. Mental Status Exam - Mental Status Exam Alert and Oriented to: Time, Place, Person Cognitive Function: Good Patient Appearance: Unkempt Mood: Withdrawn Affect: Mood Congruent Patient Behavior: Cooperative Speech Pattern: Appropriate Voice Loudness: Moderately Soft/Quiet Thought Process: Intact, Goal Oriented Thought Disorder: Not Present Hallucinations: Denies Suicidal Ideation: Denies Homicidal Ideation: Denies Insight/Judgement: Fair Sleep: Fair Appetite: Fair Muscle strength/Tone: Normal Gait/Station: Normal Psychiatric Findings - Problem List ([place] 1, 2,3) (1) Alcohol dependence with uncomplicated withdrawal Current Visit: Yes Status: Acute (2) Cannabis dependence, uncomplicated Current Visit: Yes Status: Acute (3) Cocaine dependence, uncomplicated Current Visit: Yes Status: Acute (4) Opioid dependence with withdrawal Current Visit: Yes Status: Acute (5) Drug-induced mood disorder Current Visit: Yes Status: Acute (6) Nicotine dependence Current Visit: Yes Status: Chronic Qualifiers: Nicotine product type: cigarettes Substance use status: uncomplicated Qualified Code(s): F17.210 - Nicotine dependence, cigarettes, uncomplicated - Initial Treatment Plan Initial Treatment Plan: Psychoeducation provided. Detoxification in progress. Observation.
[2017-06-17] MEDS ORDERED: METHADONE HCL 10 MG TABLET (FOR DETOX USE ONLY) PO SCH (10:00)
[2017-06-17] MEDS: PRENATAL VITAMINS W/ FOLIC ACID TABLET (FP) PO SCH (10:17)
[2017-06-17] MEDS: NICOTINE 21 MG/24 HOURS TOPICAL PATCH TD SCH (10:17)
--- NOTE | 2017-06-17 10:44 | PN ---
[facility] CIWA - CIWA Score Nausea/Vomitin-Mild Nausea/No Vomiting Muscle Tremors: 4-Moderate,w/Arms Extend Anxiety: 4-Mod. Anxious/Guarded Agitation: 4-Moderately Restless Paroxysmal Sweats: 1-Minimal Palms Moist Orientation: 0-Oriented Tacttile Disturbances: 1-Very Mild Itch/Numbness Auditory Disturbances: 0-None Visual Disturbances: 0-None Headache: 1-Very Mild CIWA-Ar Total Score: 16 BHS COWS - Scale Resting Pulse: 0= [place] 80 or Below Sweatin= Chills/Flushing Restless Observation: 1= Difficult to Sit Still Pupil Size: 0= Normal to Room Light Bone or Joint Aches: 2= Severe Diffuse Aches Runny Nose/ Eye Tearin= Runny Nose/Eyes GI Upset > 30mins: 2= Nausea/Diarrhea Tremor Observation of Outstretched Hands: 2= Slight Tremor Visible Yawning Observation: 2= >3x During Session Anxiety or Irritability: 2=Irritable/Anxious Goose Flesh Skin: 0=Smooth Skin COWS Score: 14 [facility] Progress Note (SOAP) Subjective: joint pain body ache sweat tremor trouble sleep at night anxiety restlessness Objective: 06/17/17 10:43 Vital Signs Temperature 98.6 F 06/17/17 09:15 Pulse Rate 100 H 06/17/17 09:15 Respiratory Rate 18 06/17/17 09:15 Blood Pressure 134/74 06/17/17 09:15 O2 Sat by Pulse Oximetry (%) Laboratory Last Values WBC 7.4 K/mm3 (4.0-10.0) 06/16/17 14:30 RBC 3.98 M/mm3 (4.00-5.60) L 06/16/17 14:30 Hgb 12.5 GM/dL (11.7-16.9) D 06/16/17 14:30 Hct 36.6 % (35.4-49) D 06/16/17 14:30 MCV 92.0 fl (80-96) 06/16/17 14:30 MCH 31.3 pg (25.7-33.7) 06/16/17 14:30 MCHC 34.1 g/dl (32.0-35.9) 06/16/17 14:30 RDW 13.9 % (11.9-15.9) 06/16/17 14:30 Plt Count 253 K/MM3 (134-434) 06/16/17 14:30 MPV 8.8 fl (7.5-11.1) 06/16/17 14:30 Sodium 144 mmol/L (136-145) 06/16/17 14:30 Potassium 4.3 mmol/L (3.5-5.1) 06/16/17 14:30 Chloride 105 mmol/L (98-107) 06/16/17 14:30 Carbon Dioxide 29 mmol/L (21-32) 06/16/17 14:30 Anion Gap 10 (8-16) 06/16/17 14:30 BUN 11 mg/dL (7-18) 06/16/17 14:30 Creatinine 0.9 mg/dL (0.7-1.3) 06/16/17 14:30 Creat Clearance w eGFR > 60 (>60) 06/16/17 14:30 Random Glucose 81 mg/dL (74-106) 06/16/17 14:30 Calcium 8.9 mg/dL (8.5-10.1) 06/16/17 14:30 Total Bilirubin 0.4 mg/dL (0.2-1.0) 06/16/17 14:30 AST 40 U/L (15-37) H D 06/16/17 14:30 ALT 47 U/L (12-78) D 06/16/17 14:30 Alkaline Phosphatase 103 U/L (45-117) 06/16/17 14:30 Total Protein 7.3 g/dl (6.4-8.2) 06/16/17 14:30 Albumin 3.7 g/dl (3.4-5.0) 06/16/17 14:30 Urine Color Yellow 06/16/17 23:00 Urine Appearance Turbid 06/16/17 23:00 Urine pH 5.0 (5.0-8.0) 06/16/17 23:00 Ur Specific [place] 1.027 (1.001-1.035) 06/16/17 23:00 Urine Protein Negative (NEGATIVE) 06/16/17 23:00 Urine Glucose (UA) Negative (NEGATIVE) 06/16/17 23:00 Urine Ketones Negative (NEGATIVE) 06/16/17 23:00 Urine Blood Negative (NEGATIVE) 06/16/17 23:00 Urine Nitrite Negative (NEGATIVE) 06/16/17 23:00 Urine Bilirubin Negative (<2.0 mg/dL) 06/16/17 23:00 Urine Urobilinogen 4.0 e.u/dl mg/dL (0.2-1.0) 06/16/17 23:00 Ur Leukocyte Esterase Negative (NEGATIVE) 06/16/17 23:00 RPR Titer Nonreactive (NONREACTIVE) 06/16/17 14:30 lab noted Assessment: 06/17/17 10:44 withdrawal sx Plan: continue detox
[2017-06-17] MEDS ORDERED: chlordiazePOXIDE HCL 25 MG CAPSULE PO SCH (17:00)
[2017-06-17] MEDS: diazePAM 5 MG TABLET PO PRN (19:44)
[2017-06-17] MEDS: MELATONIN 5 MG TABLETS PO PRN (22:18)
[2017-06-17] MEDS: THIAMINE HCL 100 MG TABLET (FP) PO SCH (22:18)
[2017-06-18] MEDS: diazePAM 5 MG TABLET PO SCH ×2 (10:46→22:29)
[2017-06-18] MEDS: PRENATAL VITAMINS W/ FOLIC ACID TABLET (FP) PO SCH (10:46)
[2017-06-18] MEDS: METHADONE HCL 5 MG TABLET (FOR DETOX USE ONLY) PO SCH (10:47)
[2017-06-18] MEDS: NICOTINE 21 MG/24 HOURS TOPICAL PATCH TD SCH (10:48)
[2017-06-18] MEDS: ALBUTEROL SO4 18 GM HFA INHALER IH PRN ×2 (10:49→22:31)
[2017-06-18] MEDS: diazePAM 5 MG TABLET PO PRN (14:09)
--- NOTE | 2017-06-18 14:50 | PN ---
S CIWA - CIWA Score Nausea/Vomitin Muscle Tremors: 3 Anxiety: 3 Agitation: 2 Paroxysmal Sweats: 1-Minimal Palms Moist Orientation: 0-Oriented Tacttile Disturbances: 1-Very Mild Itch/Numbness Auditory Disturbances: 1-Very Mild Visual Disturbances: 1-Very Mild Sensitivity Headache: 2-Mild CIWA-Ar Total Score: 17 BHS COWS - Scale Resting Pulse: 2= [place] 101-120 Sweatin= Chills/Flushing Restless Observation: 3= Extraneous Movement Pupil Size: 1= Pupils >than Normal Bone or Joint Aches: 2= Severe Diffuse Aches Runny Nose/ Eye Tearin= Runny Nose/Eyes GI Upset > 30mins: 2= Nausea/Diarrhea Tremor Observation of Outstretched Hands: 2= Slight Tremor Visible Yawning Observation: 1= 1-2x During Session Anxiety or Irritability: 2=Irritable/Anxious Goose Flesh Skin: 0=Smooth Skin COWS Score: 18 S Progress Note (SOAP) Subjective: ALERT,IRRITABLE,ANXIOUS,TREMOR,PAIN IN THE BODY,JOINT Objective: 06/18/17 14:49 Vital Signs Temperature 97.7 F 06/18/17 14:00 Pulse Rate 102 H 06/18/17 14:00 Respiratory Rate 20 06/18/17 14:00 Blood Pressure 125/80 06/18/17 14:00 O2 Sat by Pulse Oximetry (%) Laboratory Last Values WBC 7.4 K/mm3 (4.0-10.0) 06/16/17 14:30 RBC 3.98 M/mm3 (4.00-5.60) L 06/16/17 14:30 Hgb 12.5 GM/dL (11.7-16.9) D 06/16/17 14:30 Hct 36.6 % (35.4-49) D 06/16/17 14:30 MCV 92.0 fl (80-96) 06/16/17 14:30 MCH 31.3 pg (25.7-33.7) 06/16/17 14:30 MCHC 34.1 g/dl (32.0-35.9) 06/16/17 14:30 RDW 13.9 % (11.9-15.9) 06/16/17 14:30 Plt Count 253 K/MM3 (134-434) 06/16/17 14:30 MPV 8.8 fl (7.5-11.1) 06/16/17 14:30 Sodium 144 mmol/L (136-145) 06/16/17 14:30 Potassium 4.3 mmol/L (3.5-5.1) 06/16/17 14:30 Chloride 105 mmol/L (98-107) 06/16/17 14:30 Carbon Dioxide 29 mmol/L (21-32) 06/16/17 14:30 Anion Gap 10 (8-16) 06/16/17 14:30 BUN 11 mg/dL (7-18) 06/16/17 14:30 Creatinine 0.9 mg/dL (0.7-1.3) 06/16/17 14:30 Creat Clearance w eGFR > 60 (>60) 06/16/17 14:30 Random Glucose 81 mg/dL (74-106) 06/16/17 14:30 Calcium 8.9 mg/dL (8.5-10.1) 06/16/17 14:30 Total Bilirubin 0.4 mg/dL (0.2-1.0) 06/16/17 14:30 AST 40 U/L (15-37) H D 06/16/17 14:30 ALT 47 U/L (12-78) D 06/16/17 14:30 Alkaline Phosphatase 103 U/L (45-117) 06/16/17 14:30 Total Protein 7.3 g/dl (6.4-8.2) 06/16/17 14:30 Albumin 3.7 g/dl (3.4-5.0) 06/16/17 14:30 Urine Color Yellow 06/16/17 23:00 Urine Appearance Turbid 06/16/17 23:00 Urine pH 5.0 (5.0-8.0) 06/16/17 23:00 Ur Specific [place] 1.027 (1.001-1.035) 06/16/17 23:00 Urine Protein Negative (NEGATIVE) 06/16/17 23:00 Urine Glucose (UA) Negative (NEGATIVE) 06/16/17 23:00 Urine Ketones Negative (NEGATIVE) 06/16/17 23:00 Urine Blood Negative (NEGATIVE) 06/16/17 23:00 Urine Nitrite Negative (NEGATIVE) 06/16/17 23:00 Urine Bilirubin Negative (<2.0 mg/dL) 06/16/17 23:00 Urine Urobilinogen 4.0 e.u/dl mg/dL (0.2-1.0) 06/16/17 23:00 Ur Leukocyte Esterase Negative (NEGATIVE) 06/16/17 23:00 RPR Titer Nonreactive (NONREACTIVE) 06/16/17 14:30 HIV 1&2 Antibody Screen Negative 06/17/17 08:00 HIV P24 Antigen Negative 06/17/17 08:00 Assessment: 06/18/17 14:50 WITHDRAWAL SYMPTOM Plan: CONTINUE DETOX
[2017-06-18] MEDS ORDERED: chlordiazePOXIDE 5 MG CAPSULE PO SCH (17:00)
[2017-06-18] MEDS: THIAMINE HCL 100 MG TABLET (FP) PO SCH (22:29)
[2017-06-18] MEDS: MELATONIN 5 MG TABLETS PO PRN (22:30)
[2017-06-18] MEDS ORDERED: cloNIDine HCL 0.1 MG TABLET PO ONE (22:36)
--- NOTE | 2017-06-18 22:37 | PN ---
[facility] Progress Note (SOAP) Subjective: Nurse, Mr. Stevie Barton reports that patient's blood pressure is B/P 160/95 , HR 74. Patient is asymptomatic. Objective: 06/18/17 22:39 Vital Signs Temperature 97.5 F L 06/18/17 22:25 Pulse Rate 73 06/18/17 22:25 Respiratory Rate 22 06/18/17 22:25 Blood Pressure 160/95 06/18/17 22:25 O2 Sat by Pulse Oximetry (%) Laboratory Last Values WBC 7.4 K/mm3 (4.0-10.0) 06/16/17 14:30 RBC 3.98 M/mm3 (4.00-5.60) L 06/16/17 14:30 Hgb 12.5 GM/dL (11.7-16.9) D 06/16/17 14:30 Hct 36.6 % (35.4-49) D 06/16/17 14:30 MCV 92.0 fl (80-96) 06/16/17 14:30 MCH 31.3 pg (25.7-33.7) 06/16/17 14:30 MCHC 34.1 g/dl (32.0-35.9) 06/16/17 14:30 RDW 13.9 % (11.9-15.9) 06/16/17 14:30 Plt Count 253 K/MM3 (134-434) 06/16/17 14:30 MPV 8.8 fl (7.5-11.1) 06/16/17 14:30 Sodium 144 mmol/L (136-145) 06/16/17 14:30 Potassium 4.3 mmol/L (3.5-5.1) 06/16/17 14:30 Chloride 105 mmol/L (98-107) 06/16/17 14:30 Carbon Dioxide 29 mmol/L (21-32) 06/16/17 14:30 Anion Gap 10 (8-16) 06/16/17 14:30 BUN 11 mg/dL (7-18) 06/16/17 14:30 Creatinine 0.9 mg/dL (0.7-1.3) 06/16/17 14:30 Creat Clearance w eGFR > 60 (>60) 06/16/17 14:30 Random Glucose 81 mg/dL (74-106) 06/16/17 14:30 Calcium 8.9 mg/dL (8.5-10.1) 06/16/17 14:30 Total Bilirubin 0.4 mg/dL (0.2-1.0) 06/16/17 14:30 AST 40 U/L (15-37) H D 06/16/17 14:30 ALT 47 U/L (12-78) D 06/16/17 14:30 Alkaline Phosphatase 103 U/L (45-117) 06/16/17 14:30 Total Protein 7.3 g/dl (6.4-8.2) 06/16/17 14:30 Albumin 3.7 g/dl (3.4-5.0) 06/16/17 14:30 Urine Color Yellow 06/16/17 23:00 Urine Appearance Turbid 06/16/17 23:00 Urine pH 5.0 (5.0-8.0) 06/16/17 23:00 Ur Specific [place] 1.027 (1.001-1.035) 06/16/17 23:00 Urine Protein Negative (NEGATIVE) 06/16/17 23:00 Urine Glucose (UA) Negative (NEGATIVE) 06/16/17 23:00 Urine Ketones Negative (NEGATIVE) 06/16/17 23:00 Urine Blood Negative (NEGATIVE) 06/16/17 23:00 Urine Nitrite Negative (NEGATIVE) 06/16/17 23:00 Urine Bilirubin Negative (<2.0 mg/dL) 06/16/17 23:00 Urine Urobilinogen 4.0 e.u/dl mg/dL (0.2-1.0) 06/16/17 23:00 Ur Leukocyte Esterase Negative (NEGATIVE) 06/16/17 23:00 RPR Titer Nonreactive (NONREACTIVE) 06/16/17 14:30 HIV 1&2 Antibody Screen Negative 06/17/17 08:00 HIV P24 Antigen Negative 06/17/17 08:00 Assessment: 06/18/17 22:40 Withdrawal symptoms Plan: Clonidine 0.1mg tablet oral
[2017-06-19] MEDS: diazePAM 5 MG TABLET PO PRN (02:30)
[2017-06-19] MEDS: diazePAM 5 MG TABLET PO SCH ×2 (10:55→22:17)
[2017-06-19] MEDS: METHADONE HCL 5 MG TABLET (FOR DETOX USE ONLY) PO SCH (10:55)
[2017-06-19] MEDS: PRENATAL VITAMINS W/ FOLIC ACID TABLET (FP) PO SCH (10:56)
[2017-06-19] MEDS: NICOTINE 21 MG/24 HOURS TOPICAL PATCH TD SCH (10:59)
[2017-06-19] MEDS: DOCUSATE SODIUM 100 MG CAPSULE (FP) PO SCH ×2 (11:42→22:17)
--- NOTE | 2017-06-19 15:58 | PN ---
[facility] Progress Note (SOAP) Subjective: Headache, stomach ache, back pain, n/v/d (patient reported vomiting x 3 and diarrhea x 2 accompanied by hard stool and requesting stool softener) Objective: 06/19/17 15:57 Last Vital Signs Temp Pulse Resp BP Pulse Ox 97.9 F 86 20 109/64 06/19/17 14:00 06/19/17 14:00 06/19/17 14:00 06/19/17 14:00 Laboratory Tests 06/16/17 06/16/17 06/16/17 14:30 14:30 14:30 WBC 7.4 RBC 3.98 L Hgb 12.5 D Hct 36.6 D MCV 92.0 MCH 31.3 MCHC 34.1 RDW 13.9 Plt Count 253 MPV 8.8 Sodium 144 Potassium 4.3 Chloride 105 Carbon Dioxide 29 Anion Gap 10 BUN 11 Creatinine 0.9 Creat Clearance w eGFR > 60 Random Glucose 81 Calcium 8.9 Total Bilirubin 0.4 AST 40 H D ALT 47 D Alkaline Phosphatase 103 Total Protein 7.3 Albumin 3.7 Urine Color Urine Appearance Urine pH Ur Specific [place] Urine Protein Urine Glucose (UA) Urine Ketones Urine Blood Urine Nitrite Urine Bilirubin Urine Urobilinogen Ur Leukocyte Esterase RPR Titer Nonreactive HIV 1&2 Antibody Screen HIV P24 Antigen 06/16/17 06/17/17 23:00 08:00 WBC RBC Hgb Hct MCV MCH MCHC RDW Plt Count MPV Sodium Potassium Chloride Carbon Dioxide Anion Gap BUN Creatinine Creat Clearance w eGFR Random Glucose Calcium Total Bilirubin AST ALT Alkaline Phosphatase Total Protein Albumin Urine Color Yellow Urine Appearance Turbid Urine pH 5.0 Ur Specific [place] 1.027 Urine Protein Negative Urine Glucose (UA) Negative Urine Ketones Negative Urine Blood Negative Urine Nitrite Negative Urine Bilirubin Negative Urine Urobilinogen 4.0 e.u/dl Ur Leukocyte Esterase Negative RPR Titer HIV 1&2 Antibody Screen Negative HIV P24 Antigen Negative Labs noted Assessment: 06/19/17 15:57 Withdrawal symptoms Plan: Continue detox Encouraged PO hydration (water)
[2017-06-19] MEDS ORDERED: chlordiazePOXIDE HCL 10 MG CAPSULE PO SCH (17:00)
[2017-06-19] MEDS: THIAMINE HCL 100 MG TABLET (FP) PO SCH (22:17)
[2017-06-19] MEDS: MELATONIN 5 MG TABLETS PO PRN (22:18)
[2017-06-19] MEDS: ALBUTEROL SO4 18 GM HFA INHALER IH PRN (22:19)
[2017-06-20] MEDS ORDERED: METHADONE HCL 10 MG TABLET (FOR DETOX USE ONLY) PO SCH (10:00)
[2017-06-20] MEDS ORDERED: diazePAM 5 MG TABLET PO SCH (10:00)
[2017-06-20] MEDS: DOCUSATE SODIUM 100 MG CAPSULE (FP) PO SCH ×2 (10:16→22:04)
[2017-06-20] MEDS: PRENATAL VITAMINS W/ FOLIC ACID TABLET (FP) PO SCH (10:16)
[2017-06-20] MEDS: NICOTINE 21 MG/24 HOURS TOPICAL PATCH TD SCH (10:17)
--- NOTE | 2017-06-20 13:00 | PN ---
[facility] Progress Note (SOAP) Subjective: feeling better less sweat no tremor denies body ache tolerate food and fluid well Objective: 06/20/17 12:59 Vital Signs Temperature 97.9 F 06/20/17 10:16 Pulse Rate 84 06/20/17 10:16 Respiratory Rate 20 06/20/17 10:16 Blood Pressure 128/69 06/20/17 10:16 O2 Sat by Pulse Oximetry (%) Laboratory Last Values WBC 7.4 K/mm3 (4.0-10.0) 06/16/17 14:30 RBC 3.98 M/mm3 (4.00-5.60) L 06/16/17 14:30 Hgb 12.5 GM/dL (11.7-16.9) D 06/16/17 14:30 Hct 36.6 % (35.4-49) D 06/16/17 14:30 MCV 92.0 fl (80-96) 06/16/17 14:30 MCH 31.3 pg (25.7-33.7) 06/16/17 14:30 MCHC 34.1 g/dl (32.0-35.9) 06/16/17 14:30 RDW 13.9 % (11.9-15.9) 06/16/17 14:30 Plt Count 253 K/MM3 (134-434) 06/16/17 14:30 MPV 8.8 fl (7.5-11.1) 06/16/17 14:30 Sodium 144 mmol/L (136-145) 06/16/17 14:30 Potassium 4.3 mmol/L (3.5-5.1) 06/16/17 14:30 Chloride 105 mmol/L (98-107) 06/16/17 14:30 Carbon Dioxide 29 mmol/L (21-32) 06/16/17 14:30 Anion Gap 10 (8-16) 06/16/17 14:30 BUN 11 mg/dL (7-18) 06/16/17 14:30 Creatinine 0.9 mg/dL (0.7-1.3) 06/16/17 14:30 Creat Clearance w eGFR > 60 (>60) 06/16/17 14:30 Random Glucose 81 mg/dL (74-106) 06/16/17 14:30 Calcium 8.9 mg/dL (8.5-10.1) 06/16/17 14:30 Total Bilirubin 0.4 mg/dL (0.2-1.0) 06/16/17 14:30 AST 40 U/L (15-37) H D 06/16/17 14:30 ALT 47 U/L (12-78) D 06/16/17 14:30 Alkaline Phosphatase 103 U/L (45-117) 06/16/17 14:30 Total Protein 7.3 g/dl (6.4-8.2) 06/16/17 14:30 Albumin 3.7 g/dl (3.4-5.0) 06/16/17 14:30 Urine Color Yellow 06/16/17 23:00 Urine Appearance Turbid 06/16/17 23:00 Urine pH 5.0 (5.0-8.0) 06/16/17 23:00 Ur Specific [place] 1.027 (1.001-1.035) 06/16/17 23:00 Urine Protein Negative (NEGATIVE) 06/16/17 23:00 Urine Glucose (UA) Negative (NEGATIVE) 06/16/17 23:00 Urine Ketones Negative (NEGATIVE) 06/16/17 23:00 Urine Blood Negative (NEGATIVE) 06/16/17 23:00 Urine Nitrite Negative (NEGATIVE) 06/16/17 23:00 Urine Bilirubin Negative (<2.0 mg/dL) 06/16/17 23:00 Urine Urobilinogen 4.0 e.u/dl mg/dL (0.2-1.0) 06/16/17 23:00 Ur Leukocyte Esterase Negative (NEGATIVE) 06/16/17 23:00 RPR Titer Nonreactive (NONREACTIVE) 06/16/17 14:30 HIV 1&2 Antibody Screen Negative 06/17/17 08:00 HIV P24 Antigen Negative 06/17/17 08:00 lab noted Assessment: 06/20/17 13:00 mild withdrawal sx Plan: medically supervised detox
[2017-06-20] MEDS: THIAMINE HCL 100 MG TABLET (FP) PO SCH (22:03)
[2017-06-20] MEDS: MELATONIN 5 MG TABLETS PO PRN (22:04)
[2017-06-20] MEDS: ALBUTEROL SO4 18 GM HFA INHALER IH PRN (22:06)
[2017-06-21] MEDS: ALBUTEROL SO4 18 GM HFA INHALER IH PRN (05:44)
[2017-06-21] MEDS ORDERED: METHADONE HCL 5 MG TABLET (FOR DETOX USE ONLY) PO SCH (06:00)
[2017-06-21 06:15] VITALS: BP 133/71; PULSE 66; TEMP 97.9
--- NOTE | 2017-06-21 09:43 | DS ---
[facility] Detox Discharge Summary Admission Date: 06/16/17 Discharge Date: 06/21/17 - History Present History: Alcohol Dependence, Opioid Dependence Additional Comments: 42 years old male admitted on 06/16/17 for alcohol and opioid withdrawal sx completed detox regimen tolerated detox regimen well denies alcohol and opioid withdrawal sx alert oriented x 3 no acute distress wants to go to [facility] rehab program for recovery - Physical Exam Results Vital Signs: Vital Signs Temperature 97.9 F 06/21/17 06:00 Pulse Rate 66 06/21/17 06:00 Respiratory Rate 18 06/21/17 06:00 Blood Pressure 133/71 06/21/17 06:00 O2 Sat by Pulse Oximetry (%) Pertinent Admission Physical Exam Findings: withdrawal sx Vital Signs Temperature 97.9 F 06/21/17 06:00 Pulse Rate 66 06/21/17 06:00 Respiratory Rate 18 06/21/17 06:00 Blood Pressure 133/71 06/21/17 06:00 O2 Sat by Pulse Oximetry (%) Laboratory Last Values WBC 7.4 K/mm3 (4.0-10.0) 06/16/17 14:30 RBC 3.98 M/mm3 (4.00-5.60) L 06/16/17 14:30 Hgb 12.5 GM/dL (11.7-16.9) D 06/16/17 14:30 Hct 36.6 % (35.4-49) D 06/16/17 14:30 MCV 92.0 fl (80-96) 06/16/17 14:30 MCH 31.3 pg (25.7-33.7) 06/16/17 14:30 MCHC 34.1 g/dl (32.0-35.9) 06/16/17 14:30 RDW 13.9 % (11.9-15.9) 06/16/17 14:30 Plt Count 253 K/MM3 (134-434) 06/16/17 14:30 MPV 8.8 fl (7.5-11.1) 06/16/17 14:30 Sodium 144 mmol/L (136-145) 06/16/17 14:30 Potassium 4.3 mmol/L (3.5-5.1) 06/16/17 14:30 Chloride 105 mmol/L (98-107) 06/16/17 14:30 Carbon Dioxide 29 mmol/L (21-32) 06/16/17 14:30 Anion Gap 10 (8-16) 06/16/17 14:30 BUN 11 mg/dL (7-18) 06/16/17 14:30 Creatinine 0.9 mg/dL (0.7-1.3) 06/16/17 14:30 Creat Clearance w eGFR > 60 (>60) 06/16/17 14:30 Random Glucose 81 mg/dL (74-106) 06/16/17 14:30 Calcium 8.9 mg/dL (8.5-10.1) 06/16/17 14:30 Total Bilirubin 0.4 mg/dL (0.2-1.0) 06/16/17 14:30 AST 40 U/L (15-37) H D 06/16/17 14:30 ALT 47 U/L (12-78) D 06/16/17 14:30 Alkaline Phosphatase 103 U/L (45-117) 06/16/17 14:30 Total Protein 7.3 g/dl (6.4-8.2) 06/16/17 14:30 Albumin 3.7 g/dl (3.4-5.0) 06/16/17 14:30 Urine Color Yellow 06/16/17 23:00 Urine Appearance Turbid 06/16/17 23:00 Urine pH 5.0 (5.0-8.0) 06/16/17 23:00 Ur Specific [place] 1.027 (1.001-1.035) 06/16/17 23:00 Urine Protein Negative (NEGATIVE) 06/16/17 23:00 Urine Glucose (UA) Negative (NEGATIVE) 06/16/17 23:00 Urine Ketones Negative (NEGATIVE) 06/16/17 23:00 Urine Blood Negative (NEGATIVE) 06/16/17 23:00 Urine Nitrite Negative (NEGATIVE) 06/16/17 23:00 Urine Bilirubin Negative (<2.0 mg/dL) 06/16/17 23:00 Urine Urobilinogen 4.0 e.u/dl mg/dL (0.2-1.0) 06/16/17 23:00 Ur Leukocyte Esterase Negative (NEGATIVE) 06/16/17 23:00 RPR Titer Nonreactive (NONREACTIVE) 06/16/17 14:30 HIV 1&2 Antibody Screen Negative 06/17/17 08:00 HIV P24 Antigen Negative 06/17/17 08:00 lab noted - Treatment Hospital Course: Detox Protocol Followed, Detoxed Safely, Responded well, Discharged Condition Good, Rehab Referral Accepted Patient has Accepted a Rehab Referral to: [facility] - Medication Discharge Medications: Ambulatory Orders Zolpidem Tartrate [Ambien] 10 mg PO HS #14 tablet 03/13/15 Albuterol Sulfate Inhaler - [Ventolin HFA Inhaler -] 2 inh IH Q4H PRN #1 inhaler 06/21/17 - Diagnosis (1) Alcohol dependence with uncomplicated withdrawal Current Visit: Yes Status: Acute (2) Opioid dependence with withdrawal Current Visit: Yes Status: Acute (3) Asthma Current Visit: Yes Status: Chronic Qualifiers: Asthma severity: mild Asthma persistence: intermittent Asthma complication type: uncomplicated Qualified Code(s): J45.20 - Mild intermittent asthma, uncomplicated (4) Nicotine dependence Current Visit: Yes Status: Acute Qualifiers: Nicotine product type: cigarettes Substance use status: in withdrawal Qualified Code(s): F17.213 - Nicotine dependence, cigarettes, with withdrawal - AMA Did Patient Leave Against Medical Advice: No
== END 2017-06-21 09:20 | disposition home or self-care (01) | DRG 773 ==
LOC: YASAS 12:13 → Y6N 15:27
PROVIDERS: ADMIT Surgery; ATTEND Surgery
PROC: HZ2ZZZZ Detoxification Services for Substance Abuse Treatment (ICD-10-PCS; principal; 2017-06-16)
DX: F11.23 Opioid dependence with withdrawal (principal); F10.230 Alcohol dependence with withdrawal, uncomplicated; F14.20 Cocaine dependence, uncomplicated; F12.20 Cannabis dependence, uncomplicated; F17.213 Nicotine dependence, cigarettes, with withdrawal; F51.05 Insomnia due to other mental disorder; F19.24 Other psychoactive substance dependence with psychoactive substance-induced mood disorder; J45.20 Mild intermittent asthma, uncomplicated
CPT/HCPCS: 36415; 80053; 81003; 85027; 86593; 87389; 93005; 93010; J0735

== ENCOUNTER 2018-10-13 16:23 | Inpatient (IN) | payer OTHER ==
[2018-10-13 21:31] VITALS: BMI 23.1
--- NOTE | 2018-10-13 23:10 | HP ---
COWS - Scale Resting Pulse: 0= [place] 80 or Below Sweatin=Flushed/Facial Moisture Restless Observation: 0= Sits Still Pupil Size: 1= Pupils >than Normal Bone or Joint Aches: 4=Acute Joint/Muscle Pain Runny Nose/ Eye Tearin= Runny Nose/Eyes GI Upset > 30mins: 3= Vomiting/Diarrhea (vomiting x 3, diarrhea x 2) Tremor Observation: 4= Gross Tremor/Twitching Yawning Observation: 1= 1-2x During Session Anxiety or Irritability: 2=Irritable/Anxious Goose Flesh Skin: 0=Smooth Skin COWS Score: 19 CIWA Score - Admission Criteria OASAS Guidelines: Admission for Medically Managed Detox: Requires at least one of the followin. CIWA greater than 12 2. Seizures within the past 24 hours 3. Delirium tremens within the past 24 hours 4. Hallucinations within the past 24 hours 5. Acute intervention needed for co occurring medical disorder 6. Acute intervention needed for co occurring psychiatric disorder 7. Severe withdrawal that cannot be handled at a lower level of care (continued vomiting, continued diarrhea, abnormal vital signs) requiring intravenous medication and/or fluids 8. Admission ROS [facility] Chief Complaint: Heroin withdrawal symptoms Allergies/Adverse Reactions: Allergies Allergy/AdvReac Type Severity Reaction Status Date / Time No Known Allergies Allergy Verified 10/13/18 21:26 History of Present Illness: 43 years old male with a long history of heroin dependence (reports 15 years) is seeking admission to detox. Patient has been in previous multiple detox admissions, last at [facility]. He reports about a year of sobriety. He has history of asthma, migraine an depression. Denies suicide attempt and suicidal ideation at this time. Exam Limitations: No Limitations - Ebola screening Have you traveled outside of the country in the last 21 days: No (N) Have you had contact with anyone from an Ebola affected area: No Do you have a fever: No - Review of Systems Constitutional: Chills, Loss of Appetite, Malaise, Night Sweats, Changes in sleep, Weakness EENT: reports: Sinus Pressure Respiratory: reports: No Symptoms reported Cardiac: reports: No Symptoms Reported GI: reports: Diarrhea, Poor Appetite, Poor Fluid Intake, Vomiting, Abdominal cramping Musculoskeletal: reports: Back Pain, Joint Pain, Muscle Pain Integumentary: reports: Dryness, Flushing Neuro: reports: Headache, Tremors Endocrine: reports: No Symptoms Reported Hematology: reports: No Symptoms Reported Psychiatric: reports: Mood/Affect Appropiate, Depressed Other Systems: Reviewed and Negative Patient History - Patient Medical History Hx Anemia: No Hx Asthma: Yes (Uses MDI PRN.) Hx Chronic Obstructive Pulmonary Disease (COPD): No Hx Cancer: No Hx Cardiac Disorders: No Hx Congestive Heart Failure: No Hx Hypertension: No Hx Hypercholesterolemia: No Hx Pacemaker: No HX Cerebrovascular Accident: No Hx Seizures: No Hx Dementia: No Hx Diabetes: No Hx Gastrointestinal Disorders: No Hx Liver Disease: No Hx Genitourinary Disorders: No Hx Sexually Transmitted Disorders: No Hx Renal Disease (ESRD): No Hx Thyroid Disease: No Hx Human Immunodeficiency Virus (HIV): No ( Negative 2017) Hx Hepatitis C: No (Last Tested: 2017: NEGATIVE.) Hx Depression: Yes (Meds. in past, None currently.) Hx Suicide Attempt: No (PATIENT DENIES CURRENT SI / HI.) Hx Bipolar Disorder: No Hx Schizophrenia: No Other Medical History: Migraine - Not on medication - Patient Surgical History Past Surgical History: No Hx Neurologic Surgery: No Hx Cataract Extraction: No Hx Cardiac Surgery: No Hx Lung Surgery: No Hx Abdominal Surgery: No Hx Appendectomy: No Hx Cholecystectomy: No Hx Genitourinary Surgery: No Hx Orthopedic Surgery: No Other Surgical History: DENIES. Anesthesia Reaction: No - PPD History Previous Implant?: Yes Documented Results: Negative w/proof Implanted On Prior [facility] Admission?: Yes Date: 06/18/17 Results: 0 mm PPD to be Administered?: Yes - Reproductive History Patient is a Female of Child Bearing Age (11 -55 yrs old): No (male) - Smoking Cessation Smoking history: Current every day smoker Have you smoked in the past 12 months: Yes Aproximately how many cigarettes per day: 20 Cigars Per Day: 0 Hx Chewing Tobacco Use: No Initiated information on smoking cessation: Yes 'Breaking Loose' booklet given: 10/13/18 - Substance & Tx. History Hx Alcohol Use: No Hx Substance Use: Yes Substance Use Type: Cocaine, Heroin, Marijuana, Opiates Hx Substance Use Treatment: Yes ([facility]) - Substances abused Cocaine Substance route: Injection Frequency: Daily Amount used: $80 Age of first use: 26 Date of last use: 10/12/18 Heroin Substance route: Injection Frequency: Daily Amount used: 2 bundles Age of first use: 26 Date of last use: 10/12/18 Family Disease History - Family Disease History Family Disease History: Diabetes: Grandparent (Migraines.), Father (alcohol, ; Liver Cirrhosis.), [place]: Grandparent, Mother (of breast), Other: Grandparent, Father Admission Physical Exam [facility] - Vital Signs Vital Signs: Vital Signs - 24 hr 10/13/18 21:21 Temperature 98.5 F Pulse Rate 62 Respiratory 16 Rate Blood Pressure 145/85 - Physical General Appearance: Yes: Moderate Distress, Tremorous, Irritable, Anxious HEENTM: Yes: Within Normal Limits Respiratory: Yes: Lungs Clear, Normal Breath Sounds, No Respiratory Distress Neck: Yes: Supple Breast: Yes: Breast Exam Deferred Cardiology: Yes: Within Normal Limits Abdominal: Yes: Normal Bowel Sounds, Soft Genitourinary: Yes: Within Normal Limits Back: Yes: Normal Inspection Musculoskeletal: Yes: Back pain, Joint Stiffness, Muscle Pain Extremities: Yes: Tremors Neurological: Yes: Within Normal Limits, Alert Integumentary: Yes: Warm Lymphatic: Yes: Within Normal Limits - Diagnostic (1) Migraines Current Visit: Yes Status: Chronic Qualifiers: Migraine type: without aura (2) Alcohol dependence with uncomplicated withdrawal Current Visit: Yes Status: Acute (3) Cocaine dependence Current Visit: Yes Status: Chronic Qualifiers: Substance use status: with intoxication Complication of substance-induced condition: uncomplicated Qualified Code(s): F14.220 - Cocaine dependence with intoxication, uncomplicated (4) Nicotine dependence Current Visit: Yes Status: Chronic Qualifiers: Nicotine product type: cigarettes Substance use status: in withdrawal Qualified Code(s): F17.213 - Nicotine dependence, cigarettes, with withdrawal (5) Asthma Current Visit: Yes Status: Chronic Qualifiers: Asthma severity: mild Asthma persistence: intermittent Asthma complication type: uncomplicated Qualified Code(s): J45.20 - Mild intermittent asthma, uncomplicated (6) Cannabis dependence Current Visit: Yes Status: Chronic (7) Depression Current Visit: Yes Status: Chronic Qualifiers: Depression Type: unspecified Qualified Code(s): F32.9 - Major depressive disorder, single episode, unspecified Cleared for Admission [facility] - Detox or Rehab [facility] Level of Care: Medically Managed Detox Regimen/Protocol: Methadone Breathalyzer - Breathalyzer Breathalyzer: 0 Urine Drug Screen - Test Device Lot number: [id number] Expiration date: 07/07/20 - Control Is test valid?: Yes - Results Drug screen NEGATIVE: No Urine drug screen results: THC-Marijuana, GEORGES-Cocaine, FEN-Fentanyl, MOP-Opiates , OXY-Oxycodone Inpatient Rehab Admission - Rehab Decision to Admit Inpatient rehab admission?: No
[2018-10-13] MEDS ORDERED: MAG HYDROX/AL HYDROX/SIMETH 30 ML UNIT-DOSE CUP PO PRN (23:18)
[2018-10-13] MEDS ORDERED: cloNIDine HCL 0.1 MG TABLET PO PRN (23:18)
[2018-10-13] MEDS ORDERED: MAGNESIUM HYDROX 2400MG/30ML ORAL SUSPENSION 30 ML CUP PO PRN (23:18)
[2018-10-13] MEDS ORDERED: METHOCARBAMOL 500 MG TABLET PO PRN (23:18)
[2018-10-13] MEDS ORDERED: MAGNESIUM CITRATE 300 ML BOTTLE PO PRN (23:18)
[2018-10-13] MEDS ORDERED: BISMUTH SUBSALICYLATE 524 MG/30 ML UD PO PRN (23:18)
[2018-10-13] MEDS ORDERED: NICOTINE POLACRILEX 2 MG GUM BUC PRN (23:18)
[2018-10-13] MEDS ORDERED: IBUPROFEN 400 MG TABLET (FP) PO PRN (23:18)
[2018-10-13] MEDS ORDERED: MENTHOL/PHENOL 1 EACH UD MM PRN (23:18)
[2018-10-13] MEDS ORDERED: ACETAMINOPHEN 325 MG TABLET (FP) PO PRN ×2 (23:18)
[2018-10-13] MEDS ORDERED: METHADONE HCL 10 MG TABLET (FOR DETOX USE ONLY) PO ONE (23:18)
[2018-10-13] MEDS ORDERED: ALBUTEROL SO4 8 GM HFA INHALER IH PRN (23:22)
--- NOTE | 2018-10-14 00:35 | PN ---
[facility] Progress Note Note: Patient w/ heroin and cocaine use disorder. 10/13/18 EKG report reviewed. Sinus Bradycardia w/ Sinus Arrhythmia. QT/QTC - wnl Patient denies CP/SOB. Vital Signs 10/13/18 10/14/18 21:21 00:20 Temperature 98.5 F 98.6 F Pulse Rate 62 66 Respiratory 16 18 Rate Blood Pressure 145/85 122/59 L Continue detox.
[2018-10-14] MEDS ORDERED: METHADONE HCL 5 MG TABLET (FOR DETOX USE ONLY) ONE (09:14)
[2018-10-14] MEDS ORDERED: METHADONE HCL 10 MG TABLET (FOR DETOX USE ONLY) ONE (09:14)
[2018-10-14] MEDS ORDERED: METHADONE (DETOX) 20 MG, METHADONE (DETOX) 5 MG PO ONE (10:00)
[2018-10-14 10:19] LABS: HEMATOCRIT 40.2 % (35.4-49); HEMOGLOBIN 13.2 GM/dL (11.7-16.9); MCH 29.4 pg (25.7-33.7); MCHC 32.9 g/dl (32.0-35.9); MEAN CELL VOLUME 89.4 fl (80-96); MEAN PLT VOLUME 7.9 fl (7.5-11.1); PLATELET COUNT 300 K/MM3 (134-434); RBC 4.49 M/mm3 (4.00-5.60); RDW 13.7 % (11.9-15.9); WHITE BLOOD COUNT 9.1 K/mm3 (4.0-10.0)
[2018-10-14 10:25] LABS: ALBUMIN 3.4 g/dl (3.4-5.0); BILIRUBIN,TOTAL 0.4 mg/dL (0.2-1); BLOOD UREA NITROGEN 8.8 mg/dL (7-18); CALCIUM 9.3 mg/dL (8.5-10.1); CREATININE 0.8 mg/dL (0.55-1.3); POTASSIUM 4.3 mmol/L (3.5-5.1); TOT PROT 7.3 g/dl (6.4-8.2)
[2018-10-14] MEDS: PRENATAL VITAMINS W/ FOLIC ACID TABLET (FP) PO SCH (11:32)
[2018-10-14] MEDS: NICOTINE 14 MG/24 HOURS TOPICAL PATCH TD SCH (11:32)
--- NOTE | 2018-10-14 11:51 | PN ---
S COWS - Scale Resting Pulse: 0= [place] 80 or Below Sweatin= Beads of Sweat on Face Restless Observation: 1= Difficult to Sit Still Pupil Size: 0= Normal to Room Light Bone or Joint Aches: 1= Mild Discomfort Runny Nose/ Eye Tearin= None GI Upset > 30mins: 0= None Tremor Observation of Outstretched Hands: 2= Slight Tremor Visible Yawning Observation: 1= 1-2x During Session Anxiety or Irritability: 2=Irritable/Anxious Goose Flesh Skin: 0=Smooth Skin COWS Score: 10 S Progress Note (SOAP) Subjective: c/o muscle aches, sweats, anxiety, and irritability. Objective: 10/14/18 11:50 Vital Signs 10/14/18 10/14/18 06:00 09:15 Temperature 98.2 F 97.7 F Pulse Rate 61 44 L Respiratory 18 16 Rate Blood Pressure 120/71 122/68 Lab Results WBC 9.1 K/mm3 (4.0-10.0) 10/14/18 08:00 RBC 4.49 M/mm3 (4.00-5.60) 10/14/18 08:00 Hgb 13.2 GM/dL (11.7-16.9) 10/14/18 08:00 Hct 40.2 % (35.4-49) 10/14/18 08:00 MCV 89.4 fl (80-96) 10/14/18 08:00 MCHC 32.9 g/dl (32.0-35.9) 10/14/18 08:00 RDW 13.7 % (11.9-15.9) 10/14/18 08:00 Plt Count 300 K/MM3 (134-434) 10/14/18 08:00 Sodium 143 mmol/L (136-145) 10/14/18 08:00 Potassium 4.3 mmol/L (3.5-5.1) 10/14/18 08:00 Chloride 113 mmol/L (98-107) H 10/14/18 08:00 Carbon Dioxide 26 mmol/L (21-32) 10/14/18 08:00 Anion Gap 3 MMOL/L (8-16) L 10/14/18 08:00 BUN 8.8 mg/dL (7-18) 10/14/18 08:00 Creatinine 0.8 mg/dL (0.55-1.3) 10/14/18 08:00 Random Glucose 93 mg/dL (74-106) 10/14/18 08:00 Calcium 9.3 mg/dL (8.5-10.1) 10/14/18 08:00 Labs noted. Assessment: 10/14/18 11:50 AOX3, in no acute respiratory distress. Full ROM, ambulating in the unit. Withdrawal symptoms. Plan: continue detox.
--- NOTE | 2018-10-14 18:47 | CONSULT ---
[facility] Psychiatric Consult - Data Date of interview: 10/14/18 Admission source: [facility] Identifying data: Readmission to [facility] for this 43 y/o male self- referred for detoxification treatment (alcohol, marijuana, cocaine, heroin). Examined at [address] [place] [address]. Patient is single without children, homeless, unemployed and dependent on relatives + friends for financial assistance. Substance Abuse History: Discussed with the patient. Details in current [facility] report as follows : Smoking history: Current every day smoker. Have you smoked in the past 12 months: Yes. Aproximately how many cigarettes per day: 20. Cigars Per Day: 0. Hx Chewing Tobacco Use: No. Initiated information on smoking cessation: Yes. 'Breaking Loose' booklet given: 10/13/18. - Substance & Tx. History. Hx Alcohol Use: No. Hx Substance Use: Yes. Substance Use Type : Cocaine, Heroin, Marijuana, Opiates. Hx Substance Use Treatment: Yes ([facility]). - Substances abused. Cocaine. Substance route: Injection. Frequency: Daily. Amount used: $80. Age of first use: 26. Date of last use: 10/12/18. * * Heroin. Substance route: Injection. Frequency: Daily. Amount used: 2 bundles. Age of first use: 26. Date of last use: 10/12/18 Medical History: Medical profile remains significant for bronchial asthma and migraine headaches. Psychiatric History: Patient denies of psychiatric hospitalizations, OPD care or suicide attempts. Physical/Sexual Abuse/Trauma History: Patient denies. Additional Comment: Urine drug screen results: THC-Marijuana, GEORGES-Cocaine, FEN- Fentanyl, MOP-Opiates, OXY-Oxycodone. Noted. Mental Status Exam - Mental Status Exam Alert and Oriented to: Time, Place, Person Cognitive Function: Good Patient Appearance: Well Groomed Mood: Hopeful, Euthymic Affect: Appropriate, Normal Range Patient Behavior: Fatigued, Appropriate, Cooperative Speech Pattern: Clear, Appropriate Voice Loudness: Normal Thought Process: Intact, Goal Oriented Thought Disorder: Not Present Hallucinations: Denies Suicidal Ideation: Denies Homicidal Ideation: Denies Insight/Judgement: Poor Sleep: Poorly, Difficulty falling asleep (wants trazodone) Appetite: Good Muscle strength/Tone: Normal Gait/Station: Normal Psychiatric Findings - Problem List ([place] 1, 2,3) (1) Opioid dependence with withdrawal Current Visit: Yes Status: Acute (2) Cannabis dependence Current Visit: Yes Status: Chronic (3) Cocaine dependence Current Visit: Yes Status: Chronic Qualifiers: Substance use status: with intoxication Complication of substance-induced condition: uncomplicated Qualified Code(s): F14.220 - Cocaine dependence with intoxication, uncomplicated (4) Nicotine dependence Current Visit: Yes Status: Chronic Qualifiers: Nicotine product type: cigarettes Substance use status: in withdrawal Qualified Code(s): F17.213 - Nicotine dependence, cigarettes, with withdrawal (5) Drug-induced mood disorder Current Visit: Yes Status: Chronic (6) Insomnia Current Visit: Yes Status: Chronic Qualifiers: Insomnia type: primary Qualified Code(s): F51.01 - Primary insomnia - Initial Treatment Plan Initial Treatment Plan: Psychoeducation. Sleep hygiene. Detoxification. Support. Groups. Counseling. Trazodone 50 mg po hs. Ordered at patient's specific request. Side effects/benefits discussed with the patient. Made aware of risk for priapism. Patient gave verbal consent to MD. Reza.
[2018-10-14] MEDS: MELATONIN 5 MG TABLETS PO PRN (22:38)
[2018-10-14] MEDS: THIAMINE HCL 100 MG TABLET (FP) PO SCH (22:38)
[2018-10-14] MEDS: hydrOXYzine PAMOATE 25 MG CAPSULE (FP) PO PRN (22:40)
[2018-10-15] MEDS ORDERED: METHADONE HCL 10 MG TABLET (FOR DETOX USE ONLY) PO ONE (10:00)
[2018-10-15] MEDS: PRENATAL VITAMINS W/ FOLIC ACID TABLET (FP) PO SCH (10:29)
[2018-10-15] MEDS: NICOTINE 14 MG/24 HOURS TOPICAL PATCH TD SCH (10:30)
--- NOTE | 2018-10-15 16:45 | PN ---
BHS COWS - Scale Resting Pulse: 0= [place] 80 or Below Sweatin= Chills/Flushing Restless Observation: 3= Extraneous Movement Pupil Size: 0= Normal to Room Light Bone or Joint Aches: 2= Severe Diffuse Aches Runny Nose/ Eye Tearin= Runny Nose/Eyes GI Upset > 30mins: 2= Nausea/Diarrhea Tremor Observation of Outstretched Hands: 2= Slight Tremor Visible Yawning Observation: 0= None Anxiety or Irritability: 2=Irritable/Anxious Goose Flesh Skin: 0=Smooth Skin COWS Score: 14 BHS Progress Note (SOAP) Subjective: Feels ok, medication working well Objective: 10/15/18 16:44 Last Vital Signs Temp Pulse Resp BP Pulse Ox 96.6 F L 57 L 18 125/69 10/15/18 13:16 10/15/18 13:16 10/15/18 13:16 10/15/18 13:16 Laboratory Tests 10/14/18 10/14/18 10/14/18 08:00 08:00 08:00 WBC 9.1 RBC 4.49 Hgb 13.2 Hct 40.2 MCV 89.4 MCH 29.4 MCHC 32.9 RDW 13.7 Plt Count 300 MPV 7.9 D Sodium 143 Potassium 4.3 Chloride 113 H Carbon Dioxide 26 Anion Gap 3 L BUN 8.8 Creatinine 0.8 Est GFR (CKD-EPI)AfAm 127.70 Est GFR (CKD-EPI)NonAf 110.18 Random Glucose 93 Calcium 9.3 Total Bilirubin 0.4 AST 23 ALT 26 Alkaline Phosphatase 105 Total Protein 7.3 Albumin 3.4 RPR Titer Nonreactive HIV 1&2 Ag/Ab, 4th Gen HIV 1&2 Antibody Screen HIV P24 Antigen 10/14/18 10/14/18 08:00 09:00 WBC RBC Hgb Hct MCV MCH MCHC RDW Plt Count MPV Sodium Potassium Chloride Carbon Dioxide Anion Gap BUN Creatinine Est GFR (CKD-EPI)AfAm Est GFR (CKD-EPI)NonAf Random Glucose Calcium Total Bilirubin AST ALT Alkaline Phosphatase Total Protein Albumin RPR Titer HIV 1&2 Ag/Ab, 4th Gen Non reactive HIV 1&2 Antibody Screen Cancelled HIV P24 Antigen Cancelled Labs reviewed Assessment: 10/15/18 16:45 Withdrawal sxs Plan: Continue detox Encouraged PO water intake
--- NOTE | 2018-10-15 17:17 | EKG ---
Test Reason : Blood Pressure : / mmHG Vent. Rate : 057 BPM Atrial Rate : 057 BPM P-R Int : 164 ms QRS Dur : 094 ms QT Int : 424 ms P-R-T Axes : 067 087 064 degrees QTc Int : 412 ms SINUS BRADYCARDIA WITH SINUS ARRHYTHMIA OTHERWISE NORMAL ECG WHEN COMPARED WITH ECG OF 16-JUN-2017 18:09, NO SIGNIFICANT CHANGE WAS FOUND Confirmed by ALEXIS REECE MD ([id number]) on 10/15/2018 5:17:04 PM Referred By: Sydni Sandoval Confirmed By:ALEXIS ERECE MD
[2018-10-15] MEDS: THIAMINE HCL 100 MG TABLET (FP) PO SCH (22:27)
[2018-10-16] MEDS ORDERED: METHADONE HCL 10 MG TABLET (FOR DETOX USE ONLY) ONE (09:27)
[2018-10-16] MEDS ORDERED: METHADONE HCL 5 MG TABLET (FOR DETOX USE ONLY) ONE (09:28)
[2018-10-16] MEDS ORDERED: METHADONE (DETOX) 10 MG, METHADONE (DETOX) 5 MG PO ONE (10:00)
[2018-10-16] MEDS: PRENATAL VITAMINS W/ FOLIC ACID TABLET (FP) PO SCH (10:27)
[2018-10-16] MEDS: NICOTINE 14 MG/24 HOURS TOPICAL PATCH TD SCH (10:28)
--- NOTE | 2018-10-16 12:20 | PN ---
BHS COWS - Scale Resting Pulse: 0= [place] 80 or Below Sweatin= Chills/Flushing Restless Observation: 0= Sits Still Pupil Size: 0= Normal to Room Light Bone or Joint Aches: 1= Mild Discomfort Runny Nose/ Eye Tearin= Nasal Congestion GI Upset > 30mins: 0= None Tremor Observation of Outstretched Hands: 1= Tremor [place], Not Seen Yawning Observation: 1= 1-2x During Session Anxiety or Irritability: 1=Feels Anxious/Irritable Goose Flesh Skin: 0=Smooth Skin COWS Score: 6 BHS Progress Note (SOAP) Subjective: sweats anxiety interrupted sleep Objective: 10/16/18 12:19 Vital Signs Temperature 96.9 F L 10/16/18 09:39 Pulse Rate 63 10/16/18 09:39 Respiratory Rate 17 10/16/18 09:39 Blood Pressure 111/66 10/16/18 09:39 O2 Sat by Pulse Oximetry (%) aaox3 ambulating no acute distress Assessment: 10/16/18 12:20 mild withdrawal sx Plan: continue detox increase fluids
[2018-10-16] MEDS: MELATONIN 5 MG TABLETS PO PRN (22:33)
[2018-10-16] MEDS: THIAMINE HCL 100 MG TABLET (FP) PO SCH (22:33)
[2018-10-16] MEDS: hydrOXYzine PAMOATE 25 MG CAPSULE (FP) PO PRN (22:34)
[2018-10-17 09:48] VITALS: BP 106/62; PULSE 58; TEMP 98.2
[2018-10-17] MEDS ORDERED: METHADONE HCL 10 MG TABLET (FOR DETOX USE ONLY) PO ONE (10:00)
[2018-10-17] MEDS: PRENATAL VITAMINS W/ FOLIC ACID TABLET (FP) PO SCH (10:37)
[2018-10-17] MEDS: NICOTINE 14 MG/24 HOURS TOPICAL PATCH TD SCH (10:37)
--- NOTE | 2018-10-17 11:23 | PN ---
BHS COWS - Scale Resting Pulse: 0= [place] 80 or Below Sweatin= No chills or Flushing Restless Observation: 0= Sits Still Pupil Size: 0= Normal to Room Light Bone or Joint Aches: 1= Mild Discomfort Runny Nose/ Eye Tearin= None GI Upset > 30mins: 0= None Tremor Observation of Outstretched Hands: 0= None Yawning Observation: 2= >3x During Session Anxiety or Irritability: 1=Feels Anxious/Irritable Goose Flesh Skin: 0=Smooth Skin COWS Score: 4 BHS Progress Note (SOAP) Subjective: feeling better tired Objective: 10/17/18 11:23 Vital Signs Temperature 98.2 F 10/17/18 09:47 Pulse Rate 58 L 10/17/18 09:47 Respiratory Rate 16 10/17/18 09:47 Blood Pressure 106/62 10/17/18 09:47 O2 Sat by Pulse Oximetry (%) aaox3 lying in bed no acute distress Assessment: 10/17/18 11:23 mild withdrawal sx Plan: continue detox increase fluids d/c in am
--- NOTE | 2018-10-17 13:03 | DS ---
[facility] Detox Discharge Summary Admission Date: 10/13/18 Discharge Date: 10/17/18 - History Present History: Alcohol Dependence, Cannabis Dependence, Cocaine Dependence, Opioid Dependence - Physical Exam Results Vital Signs: Vital Signs Temperature 98.2 F 10/17/18 09:47 Pulse Rate 58 L 10/17/18 09:47 Respiratory Rate 16 10/17/18 09:47 Blood Pressure 106/62 10/17/18 09:47 O2 Sat by Pulse Oximetry (%) Pertinent Admission Physical Exam Findings: pt arrived in withdrawals Laboratory Tests 10/14/18 10/14/18 10/14/18 08:00 08:00 08:00 WBC 9.1 RBC 4.49 Hgb 13.2 Hct 40.2 MCV 89.4 MCH 29.4 MCHC 32.9 RDW 13.7 Plt Count 300 MPV 7.9 D Sodium 143 Potassium 4.3 Chloride 113 H Carbon Dioxide 26 Anion Gap 3 L BUN 8.8 Creatinine 0.8 Est GFR (CKD-EPI)AfAm 127.70 Est GFR (CKD-EPI)NonAf 110.18 Random Glucose 93 Calcium 9.3 Total Bilirubin 0.4 AST 23 ALT 26 Alkaline Phosphatase 105 Total Protein 7.3 Albumin 3.4 RPR Titer Nonreactive HIV 1&2 Ag/Ab, 4th Gen HIV 1&2 Antibody Screen HIV P24 Antigen 10/14/18 10/14/18 08:00 09:00 WBC RBC Hgb Hct MCV MCH MCHC RDW Plt Count MPV Sodium Potassium Chloride Carbon Dioxide Anion Gap BUN Creatinine Est GFR (CKD-EPI)AfAm Est GFR (CKD-EPI)NonAf Random Glucose Calcium Total Bilirubin AST ALT Alkaline Phosphatase Total Protein Albumin RPR Titer HIV 1&2 Ag/Ab, 4th Gen Non reactive HIV 1&2 Antibody Screen Cancelled HIV P24 Antigen Cancelled today pt is feeling better aaox3 ambulating no acute distress - Treatment Hospital Course: Detox Protocol Followed, Detoxed Safely, Responded well, Discharged Condition Good, Rehab Referral Accepted Patient has Accepted a Rehab Referral to: pt declined rehab; referral provided - Medication Discharge Medications: Ambulatory Orders Albuterol Sulfate Inhaler - [Ventolin HFA Inhaler -] 2 inh IH Q4H PRN #1 inhaler 06/21/17 - Diagnosis (1) Alcohol dependence with uncomplicated withdrawal Current Visit: Yes Status: Chronic (2) Opioid dependence with withdrawal Current Visit: Yes Status: Chronic (3) Asthma Current Visit: Yes Status: Chronic Qualifiers: Asthma severity: mild Asthma persistence: intermittent Asthma complication type: uncomplicated Qualified Code(s): J45.20 - Mild intermittent asthma, uncomplicated (4) Cannabis dependence Current Visit: Yes Status: Chronic (5) Cocaine dependence Current Visit: Yes Status: Chronic Qualifiers: Substance use status: with intoxication Complication of substance-induced condition: uncomplicated Qualified Code(s): F14.220 - Cocaine dependence with intoxication, uncomplicated (6) Depression Current Visit: Yes Status: Chronic Qualifiers: Depression Type: unspecified Qualified Code(s): F32.9 - Major depressive disorder, single episode, unspecified (7) Drug-induced mood disorder Current Visit: Yes Status: Chronic (8) Insomnia Current Visit: Yes Status: Chronic Qualifiers: Insomnia type: primary Qualified Code(s): F51.01 - Primary insomnia (9) Nicotine dependence Current Visit: Yes Status: Chronic Qualifiers: Nicotine product type: cigarettes Substance use status: in withdrawal Qualified Code(s): F17.213 - Nicotine dependence, cigarettes, with withdrawal (10) Weight loss Current Visit: Yes Status: Acute - AMA Did Patient Leave Against Medical Advice: No
[2018-10-17] MEDS ORDERED: traZODone HCL 50 MG TABLET (FP) PO SCH (22:00)
[2018-10-18] MEDS ORDERED: METHADONE HCL 5 MG TABLET (FOR DETOX USE ONLY) PO ONE (06:00)
== END 2018-10-17 13:38 | disposition home or self-care (01) | DRG 773 ==
LOC: YASAS 16:23 → Y6N 23:22
PROVIDERS: ADMIT Surgery; ATTEND Surgery
PROC: HZ2ZZZZ Detoxification Services for Substance Abuse Treatment (ICD-10-PCS; principal; 2018-10-13)
DX: F10.230 Alcohol dependence with withdrawal, uncomplicated (principal); F11.23 Opioid dependence with withdrawal; F14.20 Cocaine dependence, uncomplicated; F12.20 Cannabis dependence, uncomplicated; F17.213 Nicotine dependence, cigarettes, with withdrawal; F19.24 Other psychoactive substance dependence with psychoactive substance-induced mood disorder; F32.9 Major depressive disorder, single episode, unspecified; F51.01 Primary insomnia; J45.20 Mild intermittent asthma, uncomplicated; G43.909 Migraine, unspecified, not intractable, without status migrainosus; R63.4 Abnormal weight loss; Z68.23 Body mass index [BMI] 23.0-23.9, adult
CPT/HCPCS: 36415; 80053; 85027; 86480; 86593; 87389; 93005; 93010

== ENCOUNTER 2019-01-19 12:57 | Inpatient (IN) | payer OTHER ==
[2019-01-19 15:46] VITALS: BMI 25.0
--- NOTE | 2019-01-19 17:13 | HP ---
Addendum entered and electronically signed by Arcelia Bishop I, RESIDENT 17:46: QTC- 10/26 412 Original Note: COWS - Scale Resting Pulse: 0= [place] 80 or Below Sweatin= Chills/Flushing Restless Observation: 3= Extraneous Movement Pupil Size: 1= Pupils >than Normal Bone or Joint Aches: 2= Severe Diffuse Aches Runny Nose/ Eye Tearin= None GI Upset > 30mins: 3= Vomiting/Diarrhea Tremor Observation: 1= Tremor [place], Not Seen Yawning Observation: 1= 1-2x During Session Anxiety or Irritability: 1=Feels Anxious/Irritable Goose Flesh Skin: 0=Smooth Skin COWS Score: 13 CIWA Score - Admission Criteria OASAS Guidelines: Admission for Medically Managed Detox: Requires at least one of the followin. CIWA greater than 12 2. Seizures within the past 24 hours 3. Delirium tremens within the past 24 hours 4. Hallucinations within the past 24 hours 5. Acute intervention needed for co occurring medical disorder 6. Acute intervention needed for co occurring psychiatric disorder 7. Severe withdrawal that cannot be handled at a lower level of care (continued vomiting, continued diarrhea, abnormal vital signs) requiring intravenous medication and/or fluids 8. Admitting History and Physical - Admission Chief Complaint: Heroin detox History of Present Illness: Pt is a 43 yo M with PMHx of asthma/ migraines, hep C (not treated) presenting for heroin detox. Pt also uses cocaine. Last here 10/26. Also goes to [facility] for detox, last in 2018. MOP heroin Pt injects heroins 2 bundles, Last use yesterday around 8pm about 2 bundles, Uses daily since age 36 years Pt was sober between [age] years then lost his suddenly (found her from a heart murmur in bed) Started using 26 years Never overdosed, no abscess hx, no sharing of needles or re-using needles cocaine Last use 8pm yesterday Used $80 dollars worth, uses cocaine daily Started use at 26 years Shoots also as speed ball with heroin Fentanyl Thinks it is from lacing of heroin THC Smokes $40 worth daily Started at 14 years Nicotine 1PPD Started at 15 years Does not want patch or gum Does not use alcohol FHX: No addiction/ substance use hx Mother in [place] still intouch, no med probs Has 1 brother and sister- asthma No kids Social hx: Homeless for past 4 years Worked in past in construction, 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 No problems with law 10/26-HIV- non reactive, quantiferon, non reactive Will redo labs, add albuterol PRN and do Severe methadone for heroin withdrawal History Source: Patient - Past Medical History Pulmonary: Yes: Asthma - Smoking History Smoking history: Current every day smoker Have you smoked in the past 12 months: Yes Aproximately how many cigarettes per day: 20 - Alcohol/Substance Use Hx Alcohol Use: No History of Substance Use: reports: Cocaine, Heroin, Marijuana - Social History Usual Living Arrangement: Yes: Alone Do you think of yourself as: Straight/Heterosexual ADL: Independent History of Recent Travel: No Admission [facility] Allergies/Adverse Reactions: Allergies Allergy/AdvReac Type Severity Reaction Status Date / Time No Known Allergies Allergy Verified 01/19/19 15:40 - Ebola screening Have you traveled outside of the country in the last 21 days: No Have you had contact with anyone from an Ebola affected area: No Do you have a fever: No - Review of Systems Constitutional: Chills, Fever EENT: reports: No Symptoms Reported Respiratory: reports: No Symptoms reported Cardiac: reports: No Symptoms Reported GI: reports: Abd. Pain w/ defecation, Nausea : reports: No Symptoms Reported Musculoskeletal: reports: Muscle Pain Integumentary: reports: Other (track gonzalez b/l UE) Neuro: reports: No Symptoms reported Endocrine: reports: No Symptoms Reported Hematology: reports: No Symptoms Reported Psychiatric: reports: Orientated x3, Depressed (Refuses psych referral) Patient History - Patient Medical History Hx Anemia: No Hx Asthma: Yes (Uses MDI PRN.) Hx Chronic Obstructive Pulmonary Disease (COPD): No Hx Cancer: No Hx Cardiac Disorders: No Hx Congestive Heart Failure: No Hx Hypertension: No Hx Hypercholesterolemia: No Hx Pacemaker: No HX Cerebrovascular Accident: No Hx Seizures: No Hx Dementia: No Hx Diabetes: No Hx Gastrointestinal Disorders: No Hx Liver Disease: No Hx Genitourinary Disorders: No Hx Sexually Transmitted Disorders: No Hx Renal Disease (ESRD): No Hx Thyroid Disease: No Hx Human Immunodeficiency Virus (HIV): No ( Negative 2017) Hx Hepatitis C: No (Last Tested: 2016: NEGATIVE.) Hx Depression: Yes (Meds. in past, None currently.) Hx Suicide Attempt: No (PATIENT DENIES CURRENT SI / HI.) Hx Bipolar Disorder: No Hx Schizophrenia: No - Patient Surgical History Past Surgical History: No Hx Neurologic Surgery: No Hx Cataract Extraction: No Hx Cardiac Surgery: No Hx Lung Surgery: No Hx Breast Surgery: No Hx Breast Biopsy: No Hx Abdominal Surgery: No Hx Appendectomy: No Hx Cholecystectomy: No Hx Genitourinary Surgery: No Hx Section: No Hx Orthopedic Surgery: No Other Surgical History: DENIES. Anesthesia Reaction: No - PPD History Previous Implant?: Yes Date: 06/18/17 Results: 0 mm - Reproductive History Patient is a Female of Child Bearing Age (11 -55 yrs old): No - Smoking Cessation Smoking history: Current every day smoker Have you smoked in the past 12 months: Yes Aproximately how many cigarettes per day: 20 Cigars Per Day: 0 Hx Chewing Tobacco Use: No Initiated information on smoking cessation: Yes 'Breaking Loose' booklet given: 01/19/19 - Substance & Tx. History Hx Alcohol Use: No Hx Substance Use: Yes Substance Use Type: Cocaine, Heroin, Marijuana - Substances abused Cocaine Substance route: Injection Frequency: Daily Amount used: $80 Age of first use: 26 Date of last use: 01/18/19 Heroin Substance route: Injection Frequency: Daily Amount used: 2 bundles Age of first use: 26 Date of last use: 01/18/19 Marijuana/Hashish Substance route: Smoking Frequency: Daily Amount used: $40 Age of first use: 15 Date of last use: 01/18/19 Admission Physical Exam S - Vital Signs Vital Signs: Vital Signs - 24 hr 01/19/19 15:41 Temperature 96.2 F L Pulse Rate 65 Respiratory 20 Rate Blood Pressure 141/81 - Physical General Appearance: Yes: Within Normal Limits HEENTM: Yes: EOMI Respiratory: Yes: Chest Non-Tender, Lungs Clear Neck: Yes: Within Normal Limits Breast: Yes: Breast Exam Deferred Cardiology: Yes: Regular Rate, S1, S2 Abdominal: Yes: Within Normal Limits Genitourinary: Yes: Within Normal Limits Back: Yes: Within Normal Limits Musculoskeletal: Yes: full range of Motion Extremities: Yes: Within Normal Limits Neurological: Yes: Fully Oriented, Alert, Motor Strength 5/5 Integumentary: Yes: Track Gonzalez - Diagnostic (1) Opiate withdrawal Current Visit: Yes Status: Acute Cleared for Admission [facility] - Detox or Rehab [facility] Level of Care: Medically Supervised Detox Regimen/Protocol: Methadone Breathalyzer - Breathalyzer Breathalyzer: 0 Urine Drug Screen - Test Device Lot number: [id number] Expiration date: 09/06/20 - Control Is test valid?: Yes - Results Drug screen NEGATIVE: No Urine drug screen results: THC-Marijuana, GEORGES-Cocaine, FEN-Fentanyl, MOP-Opiates Inpatient Rehab Admission - Rehab Decision to Admit Inpatient rehab admission?: No
[2019-01-19] MEDS ORDERED: MAGNESIUM HYDROX 2400MG/30ML ORAL SUSPENSION 30 ML CUP PO PRN (17:40)
[2019-01-19] MEDS ORDERED: hydrOXYzine PAMOATE 25 MG CAPSULE (FP) PO PRN (17:40)
[2019-01-19] MEDS ORDERED: IBUPROFEN 400 MG TABLET (FP) PO PRN (17:40)
[2019-01-19] MEDS ORDERED: ALBUTEROL SO4 0.083% IH SOL 2.5 MG/3 ML VIAL.NEB. NEB PRN (17:40)
[2019-01-19] MEDS ORDERED: MAGNESIUM CITRATE 300 ML BOTTLE PO PRN (17:40)
[2019-01-19] MEDS ORDERED: cloNIDine HCL 0.1 MG TABLET PO PRN (17:40)
[2019-01-19] MEDS ORDERED: MENTHOL/PHENOL 1 EACH UD MM PRN (17:40)
[2019-01-19] MEDS ORDERED: ACETAMINOPHEN 325 MG TABLET (FP) PO PRN ×2 (17:40)
[2019-01-19] MEDS ORDERED: BISMUTH SUBSALICYLATE 524 MG/30 ML UD PO PRN (17:40)
[2019-01-19] MEDS ORDERED: MAG HYDROX/AL HYDROX/SIMETH 30 ML UNIT-DOSE CUP PO PRN (17:40)
--- NOTE | 2019-01-19 17:50 | PN ---
Teaching Attending Note Name of Resident: Arcelia Bishop ATTENDING PHYSICIAN STATEMENT I saw and evaluated the patient. I reviewed the resident's note and discussed the case with the resident. I agree with the resident's findings and plan as documented. SUBJECTIVE:pt here for opiate dfetox , claims 2 bundles/day via IV in nacho UE . cocaine : 80 $ /day tobacco : 1 ppd OBJECTIVE: wnwd Vital Signs - 24 hr 01/19/19 15:41 Temperature 96.2 F L Pulse Rate 65 Respiratory 20 Rate Blood Pressure 141/81 ASSESSMENT AND PLAN: OUD - Methadone detox
[2019-01-19] MEDS ORDERED: METHADONE HCL 10 MG TABLET (FOR DETOX USE ONLY) PO ONE (18:30)
[2019-01-19] MEDS: MELATONIN 5 MG TABLETS PO PRN (22:32)
[2019-01-19] MEDS: THIAMINE HCL 100 MG TABLET (FP) PO SCH (22:32)
[2019-01-20] MEDS ORDERED: METHADONE (DETOX) 20 MG, METHADONE (DETOX) 5 MG PO ONE (10:00)
[2019-01-20 10:33] LABS: HEMATOCRIT 39.7 % (35.4-49); MCH 29.8 pg (25.7-33.7); MCHC 32.8 g/dl (32.0-35.9); MEAN CELL VOLUME 90.8 fl (80-96); MEAN PLT VOLUME 8.2 fl (7.5-11.1); PLATELET COUNT 268 K/MM3 (134-434); RBC 4.37 M/mm3 (4.00-5.60); RDW 14.4 % (11.9-15.9); WHITE BLOOD COUNT 7.9 K/mm3 (4.0-10.0)
[2019-01-20 10:41] LABS: ALBUMIN 3.2 g/dl (3.4-5.0); BILIRUBIN,TOTAL 0.4 mg/dL (0.2-1); BLOOD UREA NITROGEN 13.4 mg/dL (7-18); CALCIUM 9.1 mg/dL (8.5-10.1); CREATININE 0.9 mg/dL (0.55-1.3); POTASSIUM 4.4 mmol/L (3.5-5.1); TOT PROT 6.6 g/dl (6.4-8.2)
[2019-01-20] MEDS ORDERED: METHADONE HCL 5 MG TABLET (FOR DETOX USE ONLY) ONE (12:00)
[2019-01-20] MEDS: PRENATAL VITAMINS W/ FOLIC ACID TABLET (FP) PO SCH (12:01)
[2019-01-20] MEDS ORDERED: METHADONE HCL 10 MG TABLET (FOR DETOX USE ONLY) ONE (12:01)
--- NOTE | 2019-01-20 13:57 | PN ---
BHS COWS - Scale Resting Pulse: 1= [place] 81-100 Sweatin= Chills/Flushing Restless Observation: 5= Unable to Sit Still Pupil Size: 0= Normal to Room Light Bone or Joint Aches: 2= Severe Diffuse Aches Runny Nose/ Eye Tearin= Runny Nose/Eyes GI Upset > 30mins: 1= Stomach Cramp Tremor Observation of Outstretched Hands: 1= Tremor [place], Not Seen Yawning Observation: 0= None Anxiety or Irritability: 2=Irritable/Anxious Goose Flesh Skin: 0=Smooth Skin COWS Score: 15 BHS Progress Note (SOAP) Subjective: pt states with withdrawal Sx, but feeling better overall, admitted yesterday for heroin detox O: Vital Signs - 24 hr 01/19/19 01/19/19 01/20/19 15:41 22:00 00:30 Temperature 96.2 F L 98.2 F Pulse Rate 65 78 Respiratory 20 16 18 Rate Blood Pressure 141/81 131/65 01/20/19 01/20/19 01/20/19 03:30 05:48 06:24 Temperature 97.7 F Pulse Rate 48 L Respiratory 18 18 18 Rate Blood Pressure 111/57 L 01/20/19 01/20/19 06:34 09:30 Temperature 97.5 F L Pulse Rate 56 L 57 L Respiratory 18 Rate Blood Pressure 124/66 Laboratory Tests 01/20/19 01/20/19 01/20/19 08:10 08:10 08:10 WBC 7.9 RBC 4.37 Hgb 13.0 Hct 39.7 MCV 90.8 MCH 29.8 MCHC 32.8 RDW 14.4 Plt Count 268 MPV 8.2 Sodium 141 Potassium 4.4 Chloride 110 H Carbon Dioxide 27 Anion Gap 4 L BUN 13.4 Creatinine 0.9 Est GFR (CKD-EPI)AfAm 121.67 Est GFR (CKD-EPI)NonAf 104.98 Random Glucose 85 Calcium 9.1 Total Bilirubin 0.4 AST 19 ALT 29 Alkaline Phosphatase 94 Total Protein 6.6 Albumin 3.2 L RPR Titer Nonreactive a/p: OUD- continue methadone detox protocol
[2019-01-20] MEDS: MELATONIN 5 MG TABLETS PO PRN (22:21)
[2019-01-20] MEDS: THIAMINE HCL 100 MG TABLET (FP) PO SCH (22:21)
[2019-01-21] MEDS: PRENATAL VITAMINS W/ FOLIC ACID TABLET (FP) PO SCH (09:44)
[2019-01-21] MEDS: METHOCARBAMOL 500 MG TABLET PO PRN ×2 (09:46→22:12)
[2019-01-21] MEDS ORDERED: METHADONE HCL 10 MG TABLET (FOR DETOX USE ONLY) PO ONE (10:00)
--- NOTE | 2019-01-21 12:23 | PN ---
BHS COWS - Scale Resting Pulse: 0= [place] 80 or Below Sweatin= Chills/Flushing Restless Observation: 3= Extraneous Movement Pupil Size: 0= Normal to Room Light Bone or Joint Aches: 2= Severe Diffuse Aches Runny Nose/ Eye Tearin= None GI Upset > 30mins: 2= Nausea/Diarrhea Tremor Observation of Outstretched Hands: 2= Slight Tremor Visible Yawning Observation: 0= None Anxiety or Irritability: 2=Irritable/Anxious Goose Flesh Skin: 0=Smooth Skin COWS Score: 12 BHS Progress Note (SOAP) Subjective: Feels ok, medication working well Objective: 01/21/19 12:21 Last Vital Signs Temp Pulse Resp BP Pulse Ox 97.9 F 53 L 16 125/72 01/21/19 09:16 01/21/19 09:16 01/21/19 09:16 01/21/19 09:16 Laboratory Tests 01/20/19 01/20/19 01/20/19 08:10 08:10 08:10 WBC 7.9 RBC 4.37 Hgb 13.0 Hct 39.7 MCV 90.8 MCH 29.8 MCHC 32.8 RDW 14.4 Plt Count 268 MPV 8.2 Sodium 141 Potassium 4.4 Chloride 110 H Carbon Dioxide 27 Anion Gap 4 L BUN 13.4 Creatinine 0.9 Est GFR (CKD-EPI)AfAm 121.67 Est GFR (CKD-EPI)NonAf 104.98 Random Glucose 85 Calcium 9.1 Total Bilirubin 0.4 AST 19 ALT 29 Alkaline Phosphatase 94 Total Protein 6.6 Albumin 3.2 L RPR Titer Nonreactive Labs reviewed: albumin 3.2 (L) Assessment: 01/21/19 12:22 Withdrawal sxs Noted with hypoalbuminemia Plan: Continue detox Encouraged PO water intake Hypoalbuminemia, mild: encouraged diet
[2019-01-21] MEDS: MELATONIN 5 MG TABLETS PO PRN (22:12)
[2019-01-21] MEDS: THIAMINE HCL 100 MG TABLET (FP) PO SCH (22:12)
--- NOTE | 2019-01-22 08:48 | PN ---
[facility] Progress Note Note: pt states he is feeling better and want to leave pt was asked to stay and complete his detox to prevent relapse, seizures, DT, OD and or loss, pt insisted on leaving and chose to sign AMA.
--- NOTE | 2019-01-22 08:58 | DS ---
[facility] Detox Discharge Summary Admission Date: 01/19/19 - History Present History: Alcohol Dependence, Cannabis Dependence, Cocaine Dependence, Opioid Dependence - Physical Exam Results Vital Signs: Vital Signs Temperature 97.7 F 01/22/19 06:00 Pulse Rate 49 L 01/22/19 06:00 Respiratory Rate 18 01/22/19 06:00 Blood Pressure 105/52 L 01/22/19 06:00 O2 Sat by Pulse Oximetry (%) Pertinent Admission Physical Exam Findings: Vital Signs Temperature 97.7 F 01/22/19 06:00 Pulse Rate 49 L 01/22/19 06:00 Respiratory Rate 18 01/22/19 06:00 Blood Pressure 105/52 L 01/22/19 06:00 O2 Sat by Pulse Oximetry (%) Laboratory Tests 01/20/19 01/20/19 01/20/19 08:10 08:10 08:10 WBC 7.9 RBC 4.37 Hgb 13.0 Hct 39.7 MCV 90.8 MCH 29.8 MCHC 32.8 RDW 14.4 Plt Count 268 MPV 8.2 Sodium 141 Potassium 4.4 Chloride 110 H Carbon Dioxide 27 Anion Gap 4 L BUN 13.4 Creatinine 0.9 Est GFR (CKD-EPI)AfAm 121.67 Est GFR (CKD-EPI)NonAf 104.98 Random Glucose 85 Calcium 9.1 Total Bilirubin 0.4 AST 19 ALT 29 Alkaline Phosphatase 94 Total Protein 6.6 Albumin 3.2 L RPR Titer Nonreactive pt chose to sign out AMA. - Treatment Patient has Accepted a Rehab Referral to: pt declined rehab; referral provided - Medication Discharge Medications: Ambulatory Orders Albuterol Sulfate Inhaler - [Ventolin HFA Inhaler -] 2 inh IH Q4H PRN #1 inhaler 06/21/17 - Diagnosis (1) Opiate withdrawal Current Visit: Yes Status: Chronic (2) Alcohol dependence with uncomplicated withdrawal Current Visit: Yes Status: Chronic (3) Asthma Current Visit: Yes Status: Chronic Qualifiers: Asthma severity: mild Asthma persistence: intermittent Asthma complication type: uncomplicated Qualified Code(s): J45.20 - Mild intermittent asthma, uncomplicated (4) Cannabis dependence Current Visit: Yes Status: Chronic (5) Cocaine dependence Current Visit: Yes Status: Chronic Qualifiers: Substance use status: with intoxication Complication of substance-induced condition: uncomplicated Qualified Code(s): F14.220 - Cocaine dependence with intoxication, uncomplicated (6) Depression Current Visit: No Status: Chronic Qualifiers: Depression Type: unspecified Qualified Code(s): F32.9 - Major depressive disorder, single episode, unspecified (7) Drug-induced mood disorder Current Visit: No Status: Chronic (8) Insomnia Current Visit: No Status: Chronic Qualifiers: Insomnia type: primary Qualified Code(s): F51.01 - Primary insomnia (9) Nicotine dependence Current Visit: Yes Status: Chronic Qualifiers: Nicotine product type: cigarettes Substance use status: in withdrawal Qualified Code(s): F17.213 - Nicotine dependence, cigarettes, with withdrawal (10) Opioid dependence with withdrawal Current Visit: Yes Status: Chronic - AMA Did Patient Leave Against Medical Advice: Yes
[2019-01-22 09:21] VITALS: BP 122/68; PULSE 56; TEMP 93.4
[2019-01-22] MEDS ORDERED: METHADONE (DETOX) 10 MG, METHADONE (DETOX) 5 MG PO ONE (10:00)
[2019-01-23] MEDS ORDERED: METHADONE HCL 10 MG TABLET (FOR DETOX USE ONLY) PO ONE (10:00)
[2019-01-24] MEDS ORDERED: METHADONE HCL 5 MG TABLET (FOR DETOX USE ONLY) PO ONE (06:00)
== END 2019-01-22 09:18 | disposition left against medical advice (07) | DRG 770 ==
LOC: YASAS 12:57 → Y6N 18:10
PROVIDERS: ADMIT Allergy & Immunology; ATTEND Allergy & Immunology
PROC: HZ2ZZZZ Detoxification Services for Substance Abuse Treatment (ICD-10-PCS; principal; 2019-01-19)
DX: F11.23 Opioid dependence with withdrawal (principal); F10.230 Alcohol dependence with withdrawal, uncomplicated; F14.20 Cocaine dependence, uncomplicated; F12.20 Cannabis dependence, uncomplicated; F17.213 Nicotine dependence, cigarettes, with withdrawal; F32.9 Major depressive disorder, single episode, unspecified; F19.24 Other psychoactive substance dependence with psychoactive substance-induced mood disorder; J45.20 Mild intermittent asthma, uncomplicated; B18.2 Chronic viral hepatitis C; G47.00 Insomnia, unspecified; R77.0 Abnormality of albumin; Z56.0 Unemployment, unspecified; Z59.0 Homelessness
CPT/HCPCS: 36415; 80053; 85027; 86593; J0735

== ENCOUNTER 2019-08-22 14:19 | Inpatient (IN) | payer OTHER ==
--- NOTE | 2019-08-22 14:43 | BHS.RME ---
Substance Use & Tx History - Substance Use History Heroin Substance amount: 2 bundles Frequency of use: Daily Substance route: Injection (ex: intravenous or skin popping) Date of Last Use: 08/22/19 (First use age 26 y. OD once, 3 years ago. No Narcan at home) Cocaine- Powder Substance amount: $80. Frequency of use: Daily Substance route: Injection (ex: intravenous or skin popping) Date of Last Use: 08/22/19 (First use age 26 y) Cannabis Substance amount: $50. Frequency of use: Daily Substance route: Smoking Date of Last Use: 08/21/19 (First use age 14 y) Nicotine Substance amount: one pack Frequency of use: Daily Substance route: Smoking Date of Last Use: 08/22/19 (First use age 14y) - Last Treatment Date of last treatment: Jan 20, 2020 to Jan 22 AMA Treatment type: Substance Use Disorder (BLESSING) Where was last treatment: Detox Physical/Psych/Mental Status - Behavior Eye Contact: Normal - Cooperativeness Cooperativeness: Cooperative - Thinking Thought Processes: Tight Thought content: Future oriented - Physical Health Problems Is patient presently having any pain?: No Does patient presently have any injuries (include location): No Does patient currently have a fever: No COWS - Scale Resting Pulse: 0= [place] 80 or Below Sweatin=Flushed/Facial Moisture Restless Observation: 1= Difficult to Sit Still Pupil Size: 0= Normal to Room Light Bone or Joint Aches: 2= Severe Diffuse Aches Runny Nose/ Eye Tearin= Runny Nose/Eyes GI Upset > 30mins: 1= Stomach Cramp Tremor Observation: 0= None Yawning Observation: 0= None Anxiety or Irritability: 1=Feels Anxious/Irritable Goose Flesh Skin: 0=Smooth Skin COWS Score: 9
[2019-08-22 15:47] VITALS: BMI 23.0
--- NOTE | 2019-08-22 16:25 | HP ---
COWS - Scale Resting Pulse: 0= [place] 80 or Below Sweatin= No chills or Flushing Restless Observation: 1= Difficult to Sit Still Pupil Size: 0= Normal to Room Light Bone or Joint Aches: 2= Severe Diffuse Aches Runny Nose/ Eye Tearin= Runny Nose/Eyes GI Upset > 30mins: 1= Stomach Cramp Tremor Observation: 0= None Yawning Observation: 0= None Anxiety or Irritability: 1=Feels Anxious/Irritable Goose Flesh Skin: 0=Smooth Skin COWS Score: 7 CIWA Score - Admission Criteria [facility]ASAS Guidelines: Admission for Medically Managed Detox: Requires at least one of the followin. CIWA greater than 12 2. Seizures within the past 24 hours 3. Delirium tremens within the past 24 hours 4. Hallucinations within the past 24 hours 5. Acute intervention needed for co occurring medical disorder 6. Acute intervention needed for co occurring psychiatric disorder 7. Severe withdrawal that cannot be handled at a lower level of care (continued vomiting, continued diarrhea, abnormal vital signs) requiring intravenous medication and/or fluids 8. Admitting History and Physical - Past Medical History Pulmonary: Yes: Asthma - Smoking History Smoking history: Current every day smoker Have you smoked in the past 12 months: Yes Aproximately how many cigarettes per day: 20 - Alcohol/Substance Use Hx Alcohol Use: No History of Substance Use: reports: Cocaine, Heroin, Marijuana - Social History ADL: Independent History of Recent Travel: No Admission [facility] - HPI Allergies/Adverse Reactions: Allergies Allergy/AdvReac Type Severity Reaction Status Date / Time No Known Allergies Allergy Verified 08/22/19 15:36 History of Present Illness: 44 y.o. male w/ opioid dependence , requesting detox from heroin use , reports 2 bundles/day via iV , denies OD , abscess cocaine : 80 $ /day via inhalation cannabis -daily tobacco : 1 ppd PMHX : asthma, hep C , migraine BALLESTEROS . Exam Limitations: Clinical Condition, Intoxication - Review of Systems Constitutional: See HPI, Loss of Appetite EENT: reports: No Symptoms Reported Respiratory: reports: No Symptoms reported Cardiac: reports: No Symptoms Reported GI: reports: See HPI, Poor Appetite, Abdominal cramping : reports: No Symptoms Reported Musculoskeletal: reports: No Symptoms Reported Integumentary: reports: See HPI Neuro: reports: No Symptoms reported Endocrine: reports: No Symptoms Reported Hematology: reports: No Symptoms Reported Psychiatric: reports: Anxious Patient History - Patient Medical History Hx Anemia: No Hx Asthma: Yes Hx Chronic Obstructive Pulmonary Disease (COPD): No Hx Cancer: No Hx Cardiac Disorders: No Hx Congestive Heart Failure: No Hx Hypertension: No Hx Hypercholesterolemia: No Hx Pacemaker: No HX Cerebrovascular Accident: No Hx Seizures: No Hx Dementia: No Hx Diabetes: No Hx Gastrointestinal Disorders: No Hx Liver Disease: No Hx Genitourinary Disorders: No Hx Sexually Transmitted Disorders: No Hx Renal Disease (ESRD): No Hx Thyroid Disease: No Hx Human Immunodeficiency Virus (HIV): No ( Negative 2018) Hx Hepatitis C: Yes Hx Depression: No Hx Suicide Attempt: No Hx Bipolar Disorder: No Hx Schizophrenia: No - Patient Surgical History Past Surgical History: No Hx Neurologic Surgery: No Hx Cataract Extraction: No Hx Cardiac Surgery: No Hx Lung Surgery: No Hx Breast Surgery: No Hx Breast Biopsy: No Hx Abdominal Surgery: No Hx Appendectomy: No Hx Cholecystectomy: No Hx Genitourinary Surgery: No Hx Section: No Hx Orthopedic Surgery: No Other Surgical History: DENIES. Anesthesia Reaction: No - PPD History Previous Implant?: Yes Documented Results: Negative w/proof Implanted On Prior [facility] Admission?: Yes Date: 10/16/18 Results: 0 mm PPD to be Administered?: No - Smoking Cessation Smoking history: Current every day smoker Have you smoked in the past 12 months: Yes Aproximately how many cigarettes per day: 20 Cigars Per Day: 0 Hx Chewing Tobacco Use: No Initiated information on smoking cessation: Yes 'Breaking Loose' booklet given: 08/22/19 - Substances abused Cocaine Substance route: Injection Frequency: Daily Amount used: 2 bundles Age of first use: 26 Date of last use: 08/21/19 Methamphetamine Substance route: Injection Frequency: Daily Amount used: 2 bundles Age of first use: 26 Date of last use: 08/21/19 Heroin Substance route: Injection Frequency: Daily Amount used: 2 bundles Age of first use: 26 Date of last use: 08/22/19 Admission Physical Exam BHS - Vital Signs Vital Signs: Vital Signs - 24 hr 08/22/19 14:19 Temperature 97.9 F Pulse Rate 80 Respiratory 18 Rate Blood Pressure 109/62 - Physical General Appearance: Yes: Intoxicated, Irritable, Anxious HEENTM: Yes: EOMI, Hearing grossly Normal, Normocephalic, Normal Voice Respiratory: Yes: Chest Non-Tender, Lungs Clear, Normal Breath Sounds, No Respiratory Distress, No Accessory Muscle Use Neck: Yes: No masses,lesions,Nodules, Trachea in good position Cardiology: Yes: Regular Rhythm, Regular Rate, S1, S2 Abdominal: Yes: Non Tender, Soft Back: Yes: Normal Inspection Musculoskeletal: Yes: Gait Steady Extremities: Yes: Normal Inspection, Normal Range of Motion, Non-Tender Neurological: Yes: Fully Oriented, Alert, Motor Strength 5/5 Integumentary: Yes: Warm - Diagnostic (1) Opioid intoxication Current Visit: Yes Status: Acute Qualifiers: Complication of substance-induced condition: uncomplicated Qualified Code(s): F11.920 - Opioid use, unspecified with intoxication, uncomplicated (2) Cocaine dependence Current Visit: Yes Status: Chronic Qualifiers: Substance use status: uncomplicated Qualified Code(s): F14.20 - Cocaine dependence, uncomplicated Breathalyzer - Breathalyzer Breathalyzer: 0 Urine Drug Screen - Test Device Lot number: [id number] Expiration date: 10/07/20 - Control Is test valid?: Yes - Results Drug screen NEGATIVE: No Urine drug screen results: THC-Marijuana, GEORGES-Cocaine, MET-Methamphetamine, AMP- Amphetamines, FEN-Fentanyl, MOP-Opiates Inpatient Rehab Admission - Rehab Decision to Admit Inpatient rehab admission?: No
[2019-08-22] MEDS ORDERED: BISMUTH SUBSALICYLATE 524 MG/30 ML UD PO PRN (16:33)
[2019-08-22] MEDS ORDERED: ALBUTEROL SO4 0.083% IH SOL 2.5 MG/3 ML VIAL.NEB. NEB PRN (16:33)
[2019-08-22] MEDS ORDERED: MAGNESIUM HYDROX 2400MG/30ML ORAL SUSPENSION 30 ML CUP PO PRN (16:33)
[2019-08-22] MEDS ORDERED: MAG HYDROX/AL HYDROX/SIMETH 30 ML UNIT-DOSE CUP PO PRN (16:33)
[2019-08-22] MEDS ORDERED: IBUPROFEN 400 MG TABLET (FP) PO PRN (16:33)
[2019-08-22] MEDS ORDERED: MAGNESIUM CITRATE 300 ML BOTTLE PO PRN (16:33)
[2019-08-22] MEDS ORDERED: MENTHOL/PHENOL 1 EACH UD MM PRN (16:33)
[2019-08-22] MEDS ORDERED: METHOCARBAMOL 500 MG TABLET PO PRN (16:33)
[2019-08-22] MEDS ORDERED: ACETAMINOPHEN 325 MG TABLET (FP) PO PRN ×2 (16:33)
[2019-08-22] MEDS ORDERED: cloNIDine HCL 0.1 MG TABLET PO PRN (16:35)
[2019-08-22] MEDS ORDERED: METHADONE HCL 10 MG TABLET (FOR DETOX USE ONLY) PO ONE (19:15)
[2019-08-22] MEDS: THIAMINE HCL 100 MG TABLET (FP) PO SCH (22:30)
[2019-08-22] MEDS: hydrOXYzine PAMOATE 25 MG CAPSULE (FP) PO PRN (22:30)
[2019-08-22] MEDS: MELATONIN 5 MG TABLETS PO SCH (22:30)
[2019-08-23] MEDS ORDERED: METHADONE HCL 5 MG TABLET (FOR DETOX USE ONLY) ONE (09:02)
[2019-08-23] MEDS ORDERED: METHADONE HCL 10 MG TABLET (FOR DETOX USE ONLY) ONE (09:02)
[2019-08-23] MEDS ORDERED: METHADONE (DETOX) 20 MG, METHADONE (DETOX) 5 MG PO ONE (10:00)
[2019-08-23] MEDS: PRENATAL VITAMINS W/ FOLIC ACID TABLET (FP) PO SCH (10:28)
[2019-08-23] MEDS: hydrOXYzine PAMOATE 25 MG CAPSULE (FP) PO PRN (10:29)
[2019-08-23 11:10] LABS: HEMATOCRIT 40.4 % (35.4-49); HEMOGLOBIN 13.3 GM/dL (11.7-16.9); MCH 28.7 pg (25.7-33.7); MCHC 32.8 g/dl (32.0-35.9); MEAN CELL VOLUME 87.4 fl (80-96); MEAN PLT VOLUME 8.6 fl (7.5-11.1); PLATELET COUNT 350 K/MM3 (134-434); RBC 4.63 M/mm3 (4.00-5.60); WHITE BLOOD COUNT 9.6 K/mm3 (4.0-10.0)
[2019-08-23 11:27] LABS: POTASSIUM 3.8 mmol/L (3.5-5.1)
[2019-08-23 11:42] LABS: ALBUMIN 3.6 g/dl (3.4-5.0); BILIRUBIN,TOTAL 0.4 mg/dL (0.2-1); BLOOD UREA NITROGEN 14.4 mg/dL (7-18); CALCIUM 8.7 mg/dL (8.5-10.1); CREATININE 0.8 mg/dL (0.55-1.3); TOT PROT 7.9 g/dl (6.4-8.2)
--- NOTE | 2019-08-23 12:00 | EKG ---
Test Reason : Blood Pressure : / mmHG Vent. Rate : 061 BPM Atrial Rate : 061 BPM P-R Int : 174 ms QRS Dur : 110 ms QT Int : 424 ms P-R-T Axes : 073 082 062 degrees QTc Int : 426 ms POOR DATA QUALITY, INTERPRETATION MAY BE ADVERSELY AFFECTED SINUS RHYTHM WITH MARKED SINUS ARRHYTHMIA OTHERWISE NORMAL ECG WHEN COMPARED WITH ECG OF 13-OCT-2018 23:55, NO SIGNIFICANT CHANGE WAS FOUND Confirmed by AGGIE RIDDLE, KELSEY ([id number]) on 08/23/2019 11:59:53 AM Referred By: Confirmed By:KELSEY MARCIAL MD
--- NOTE | 2019-08-23 12:20 | PN ---
BHS COWS - Scale Resting Pulse: 0= [place] 80 or Below Sweatin= Chills/Flushing Restless Observation: 3= Extraneous Movement Pupil Size: 0= Normal to Room Light Bone or Joint Aches: 2= Severe Diffuse Aches Runny Nose/ Eye Tearin= None GI Upset > 30mins: 0= None Tremor Observation of Outstretched Hands: 1= Tremor [place], Not Seen Yawning Observation: 1= 1-2x During Session Anxiety or Irritability: 1=Feels Anxious/Irritable Goose Flesh Skin: 0=Smooth Skin COWS Score: 9 BHS Progress Note (SOAP) Subjective: Pt is a 44 y/o male admitted to detox for Heroin withdrawal sx. c/o anxiety sweats chills intermittent sleep Objective: 08/23/19 12:25 Vital Signs - 24 hr 08/22/19 08/22/19 08/22/19 14:19 16:44 17:02 Temperature 97.9 F 97.5 F L Pulse Rate 80 86 Respiratory 18 18 Rate Blood Pressure 109/62 107/70 O2 Sat by Pulse 98 98 Oximetry (%) 08/22/19 08/23/19 20:48 07:00 Temperature 98.4 F 98.1 F Pulse Rate 84 64 Respiratory 18 18 Rate Blood Pressure 119/77 117/62 O2 Sat by Pulse 97 97 Oximetry (%) Laboratory Tests 08/23/19 08/23/19 08/23/19 07:50 07:50 07:50 WBC 9.6 RBC 4.63 Hgb 13.3 Hct 40.4 MCV 87.4 MCH 28.7 MCHC 32.8 RDW 14.0 Plt Count 350 D MPV 8.6 Sodium 140 Potassium 3.8 Chloride 106 Carbon Dioxide 28 Anion Gap 6 L BUN 14.4 Creatinine 0.8 Est GFR (CKD-EPI)AfAm 126.81 Est GFR (CKD-EPI)NonAf 109.41 Random Glucose 88 Calcium 8.7 Total Bilirubin 0.4 AST 28 ALT 31 Alkaline Phosphatase 111 Total Protein 7.9 Albumin 3.6 Syphilis Serology Non-reactive alert o x 3 nad oob ambulating with steady gait Assessment: 08/23/19 12:26 withdrawal sx Plan: cont detox increase po fluids maintain safety
[2019-08-23] MEDS: THIAMINE HCL 100 MG TABLET (FP) PO SCH (22:21)
[2019-08-23] MEDS: MELATONIN 5 MG TABLETS PO SCH (22:21)
[2019-08-24] MEDS ORDERED: METHADONE HCL 10 MG TABLET (FOR DETOX USE ONLY) PO ONE (10:00)
[2019-08-24] MEDS: PRENATAL VITAMINS W/ FOLIC ACID TABLET (FP) PO SCH (10:27)
--- NOTE | 2019-08-24 14:14 | PN ---
BHS COWS - Scale Resting Pulse: 0= [place] 80 or Below Sweatin= Chills/Flushing Restless Observation: 3= Extraneous Movement Pupil Size: 0= Normal to Room Light Bone or Joint Aches: 1= Mild Discomfort Runny Nose/ Eye Tearin= None GI Upset > 30mins: 0= None Tremor Observation of Outstretched Hands: 1= Tremor [place], Not Seen Yawning Observation: 0= None Anxiety or Irritability: 1=Feels Anxious/Irritable Goose Flesh Skin: 0=Smooth Skin COWS Score: 7 BHS Progress Note (SOAP) Subjective: c/o anxiety slight tremors intermittent sleep Objective: 08/24/19 14:13 Vital Signs - 24 hr 08/23/19 08/23/19 08/24/19 16:58 20:16 05:58 Temperature 97.8 F 97.3 F L 97.5 F L Pulse Rate 50 L 56 L 53 L Respiratory 16 18 18 Rate Blood Pressure 115/68 129/77 118/69 O2 Sat by Pulse 97 96 Oximetry (%) 08/24/19 10:00 Temperature 97.7 F Pulse Rate 58 L Respiratory 16 Rate Blood Pressure 133/74 O2 Sat by Pulse 98 Oximetry (%) Laboratory Tests 08/22/19 08/23/19 08/23/19 18:00 07:50 07:50 WBC 9.6 RBC 4.63 Hgb 13.3 Hct 40.4 MCV 87.4 MCH 28.7 MCHC 32.8 RDW 14.0 Plt Count 350 D MPV 8.6 Sodium Potassium Chloride Carbon Dioxide Anion Gap BUN Creatinine Est GFR (CKD-EPI)AfAm Est GFR (CKD-EPI)NonAf Random Glucose Calcium Total Bilirubin AST ALT Alkaline Phosphatase Total Protein Albumin Syphilis Serology Non-reactive COVID-19 (MARTI) Not detected 08/23/19 07:50 WBC RBC Hgb Hct MCV MCH MCHC RDW Plt Count MPV Sodium 140 Potassium 3.8 Chloride 106 Carbon Dioxide 28 Anion Gap 6 L BUN 14.4 Creatinine 0.8 Est GFR (CKD-EPI)AfAm 126.81 Est GFR (CKD-EPI)NonAf 109.41 Random Glucose 88 Calcium 8.7 Total Bilirubin 0.4 AST 28 ALT 31 Alkaline Phosphatase 111 Total Protein 7.9 Albumin 3.6 Syphilis Serology COVID-19 (MARTI) covid-19 not detected alert o x 3 nad oob ambulating with steady gait Assessment: 08/24/19 14:13 withdrawal sx Plan: cont detox increase po fluids maintain safety
[2019-08-24] MEDS: MELATONIN 5 MG TABLETS PO SCH (22:55)
[2019-08-24] MEDS: THIAMINE HCL 100 MG TABLET (FP) PO SCH (22:55)
[2019-08-25 06:35] VITALS: TEMP 97.8
[2019-08-25] MEDS ORDERED: METHADONE (DETOX) 10 MG, METHADONE (DETOX) 5 MG PO ONE (10:00)
[2019-08-25] MEDS ORDERED: METHADONE HCL 10 MG TABLET (FOR DETOX USE ONLY) ONE (10:21)
[2019-08-25] MEDS: PRENATAL VITAMINS W/ FOLIC ACID TABLET (FP) PO SCH (10:22)
[2019-08-25] MEDS ORDERED: METHADONE HCL 5 MG TABLET (FOR DETOX USE ONLY) ONE (10:22)
[2019-08-25 10:31] VITALS: BP 127/70; PULSE 76
--- NOTE | 2019-08-25 11:18 | PN ---
BHS COWS - Scale Resting Pulse: 0= [place] 80 or Below Sweatin= Beads of Sweat on Face Restless Observation: 1= Difficult to Sit Still Pupil Size: 0= Normal to Room Light Bone or Joint Aches: 2= Severe Diffuse Aches Runny Nose/ Eye Tearin= None GI Upset > 30mins: 0= None Tremor Observation of Outstretched Hands: 0= None Yawning Observation: 1= 1-2x During Session Anxiety or Irritability: 2=Irritable/Anxious Goose Flesh Skin: 0=Smooth Skin COWS Score: 9 BHS Progress Note (SOAP) Subjective: c/o anxiety, irritability, sweats, and muscle aches. Objective: 08/25/19 11:16 Laboratory Last Values WBC 9.6 K/mm3 (4.0-10.0) 08/23/19 07:50 RBC 4.63 M/mm3 (4.00-5.60) 08/23/19 07:50 Hgb 13.3 GM/dL (11.7-16.9) 08/23/19 07:50 Hct 40.4 % (35.4-49) 08/23/19 07:50 MCV 87.4 fl (80-96) 08/23/19 07:50 MCH 28.7 pg (25.7-33.7) 08/23/19 07:50 MCHC 32.8 g/dl (32.0-35.9) 08/23/19 07:50 RDW 14.0 % (11.9-15.9) 08/23/19 07:50 Plt Count 350 K/MM3 (134-434) D 08/23/19 07:50 MPV 8.6 fl (7.5-11.1) 08/23/19 07:50 Sodium 140 mmol/L (136-145) 08/23/19 07:50 Potassium 3.8 mmol/L (3.5-5.1) 08/23/19 07:50 Chloride 106 mmol/L (98-107) 08/23/19 07:50 Carbon Dioxide 28 mmol/L (21-32) 08/23/19 07:50 Anion Gap 6 MMOL/L (8-16) L 08/23/19 07:50 BUN 14.4 mg/dL (7-18) 08/23/19 07:50 Creatinine 0.8 mg/dL (0.55-1.3) 08/23/19 07:50 Est GFR (CKD-EPI)AfAm 126.81 08/23/19 07:50 Est GFR (CKD-EPI)NonAf 109.41 08/23/19 07:50 Random Glucose 88 mg/dL (74-106) 08/23/19 07:50 Calcium 8.7 mg/dL (8.5-10.1) 08/23/19 07:50 Total Bilirubin 0.4 mg/dL (0.2-1) 08/23/19 07:50 AST 28 U/L (15-37) 08/23/19 07:50 ALT 31 U/L (13-61) 08/23/19 07:50 Alkaline Phosphatase 111 U/L (45-117) 08/23/19 07:50 Total Protein 7.9 g/dl (6.4-8.2) 08/23/19 07:50 Albumin 3.6 g/dl (3.4-5.0) 08/23/19 07:50 Syphilis Serology Non-reactive (NONREACTIVE) 08/23/19 07:50 COVID-19 (MARTI) Not detected (Not Detected) 08/22/19 18:00 Labs noted. Assessment: 08/25/19 11:16 AOX3, in no acute respiratory distress. Full ROM, ambulating in the unit. Withdrawal symptoms Plan: continue detox.
--- NOTE | 2019-08-25 14:45 | DS ---
[facility] Detox Discharge Summary Admission Date: 08/22/19 Discharge Date: 08/25/19 (Pt left AMA) - History Present History: Cocaine Dependence, Opioid Dependence Additional Comments: Pt left AMA. Pt did not complete the detox protocol. Pt states, "i just want to leave, i got personal stuff to do". An attempt to let pt stay and complete the detox protocol failed. Pt is encouraged to follow-up with an outpatient CD program and also to follow-up with his pmd which he verbalized understanding. Pt is AOX3, in no acute respiratory distress, Full ROM and ambulatory. Pertinent Past History: h/o asthma, cocaine, and heroin use disorder. - Physical Exam Results Vital Signs: Vital Signs Temperature 97.8 F 08/25/19 09:29 Pulse Rate 76 08/25/19 09:29 Respiratory Rate 18 08/25/19 09:29 Blood Pressure 127/70 08/25/19 09:29 O2 Sat by Pulse Oximetry (%) 98 08/25/19 09:29 Vital Signs 08/25/19 09:29 Temperature 97.8 F Pulse Rate 76 Respiratory 18 Rate Blood Pressure 127/70 O2 Sat by Pulse 98 Oximetry (%) Laboratory Last Values WBC 9.6 K/mm3 (4.0-10.0) 08/23/19 07:50 RBC 4.63 M/mm3 (4.00-5.60) 08/23/19 07:50 Hgb 13.3 GM/dL (11.7-16.9) 08/23/19 07:50 Hct 40.4 % (35.4-49) 08/23/19 07:50 MCV 87.4 fl (80-96) 08/23/19 07:50 MCH 28.7 pg (25.7-33.7) 08/23/19 07:50 MCHC 32.8 g/dl (32.0-35.9) 08/23/19 07:50 RDW 14.0 % (11.9-15.9) 08/23/19 07:50 Plt Count 350 K/MM3 (134-434) D 08/23/19 07:50 MPV 8.6 fl (7.5-11.1) 08/23/19 07:50 Sodium 140 mmol/L (136-145) 08/23/19 07:50 Potassium 3.8 mmol/L (3.5-5.1) 08/23/19 07:50 Chloride 106 mmol/L (98-107) 08/23/19 07:50 Carbon Dioxide 28 mmol/L (21-32) 08/23/19 07:50 Anion Gap 6 MMOL/L (8-16) L 08/23/19 07:50 BUN 14.4 mg/dL (7-18) 08/23/19 07:50 Creatinine 0.8 mg/dL (0.55-1.3) 08/23/19 07:50 Est GFR (CKD-EPI)AfAm 126.81 08/23/19 07:50 Est GFR (CKD-EPI)NonAf 109.41 08/23/19 07:50 Random Glucose 88 mg/dL (74-106) 08/23/19 07:50 Calcium 8.7 mg/dL (8.5-10.1) 08/23/19 07:50 Total Bilirubin 0.4 mg/dL (0.2-1) 08/23/19 07:50 AST 28 U/L (15-37) 08/23/19 07:50 ALT 31 U/L (13-61) 08/23/19 07:50 Alkaline Phosphatase 111 U/L (45-117) 08/23/19 07:50 Total Protein 7.9 g/dl (6.4-8.2) 08/23/19 07:50 Albumin 3.6 g/dl (3.4-5.0) 08/23/19 07:50 Syphilis Serology Non-reactive (NONREACTIVE) 08/23/19 07:50 COVID-19 (MARTI) Not detected (Not Detected) 08/22/19 18:00 Labs noted. Pertinent Admission Physical Exam Findings: withdrawal symptoms. - Treatment Hospital Course: Detox Protocol Followed, Detoxed Safely, Responded well, Discharged Condition Good - Medication Discharge Medications: Ambulatory Orders Albuterol Sulfate Inhaler - [Ventolin HFA Inhaler -] 2 inh IH Q4H PRN #1 inhaler 06/21/17 - Diagnosis (1) Cocaine dependence Current Visit: Yes Status: Chronic Qualifiers: Substance use status: uncomplicated Qualified Code(s): F14.20 - Cocaine dependence, uncomplicated (2) Asthma Current Visit: No Status: Chronic Qualifiers: Asthma severity: mild Asthma persistence: intermittent Asthma complication type: uncomplicated Qualified Code(s): J45.20 - Mild intermittent asthma, uncomplicated (3) Nicotine dependence Current Visit: No Status: Chronic Qualifiers: Nicotine product type: cigarettes Substance use status: in withdrawal Qualified Code(s): F17.213 - Nicotine dependence, cigarettes, with withdrawal (4) Opioid dependence with withdrawal Current Visit: No Status: Chronic (5) Opioid abuse Current Visit: Yes Status: Chronic - AMA Did Patient Leave Against Medical Advice: Yes
[2019-08-25 17:57] LABS: URINE APPEARANCE CLEAR; URINE BILIRUBIN NEGATIVE (NEGATIVE); URINE COLOR YELLOW; URINE GLUCOSE (UA) NEGATIVE (NEGATIVE); URINE KETONE NEGATIVE (NEGATIVE); URINE LEUK ESTERASE NEGATIVE (NEGATIVE); URINE NITRITE NEGATIVE (NEGATIVE); URINE PROTEIN NEGATIVE (NEGATIVE); URINE UROBILINOGEN 0.2 mg/dL (0.2-1.0)
[2019-08-26] MEDS ORDERED: METHADONE HCL 10 MG TABLET (FOR DETOX USE ONLY) PO ONE (10:00)
[2019-08-27] MEDS ORDERED: METHADONE HCL 5 MG TABLET (FOR DETOX USE ONLY) PO ONE (06:00)
== END 2019-08-25 15:15 | disposition left against medical advice (07) | DRG 770 ==
LOC: YASAS 14:19 → Y5N DETOX 16:18
PROVIDERS: ADMIT Allergy & Immunology; ATTEND Allergy & Immunology
PROC: HZ2ZZZZ Detoxification Services for Substance Abuse Treatment (ICD-10-PCS; principal; 2019-08-22)
DX: F11.23 Opioid dependence with withdrawal (principal); F14.20 Cocaine dependence, uncomplicated; F15.20 Other stimulant dependence, uncomplicated; F12.20 Cannabis dependence, uncomplicated; F17.210 Nicotine dependence, cigarettes, uncomplicated; J45.20 Mild intermittent asthma, uncomplicated; G43.909 Migraine, unspecified, not intractable, without status migrainosus; B18.2 Chronic viral hepatitis C
CPT/HCPCS: 36415; 80053; 81003; 85027; 86780; 93005; 93010; U0003